=== PATIENT | female | born 1975 | race African-American/Black ===

== ENCOUNTER 2016-11-19 20:36 | Inpatient (IN) | payer MEDICAID, OTHER ==
[~2016-11-19] VITALS: Ht 162.6 cm; Wt 81.5 kg
[~2016-11-19 20:36] MED LIST: IBUP-232 PO
[2016-11-19 20:41] VITALS: BP 180/106; PULSE 75; RESP 16; TEMP 98.6; O2SAT 100
[2016-11-20] VITALS (9 sets, daily range): BP systolic 137–223; BP diastolic 11–131; PULSE 66–89; RESP 16–19; TEMP 98.2; O2SAT 98–100
--- NOTE | 2016-11-20 04:21 | PD ---
HPI Chief Complaint: Anxiety Time Seen by Provider: 03:04 Travel History International Travel<30 days: No Contact w/Intl Traveler<30days: No Traveled to known affect area: No History of Present Illness HPI The patient is 41 year old female who presents to the [facility] emergency department with a history of depression and anxiety, who reports that her psychologist recommended that she be admitted to the hospital for medication adjustments that she has been experiencing suicidal ideations. She reports that she was seen by her psychologist at 6 PM today. The patient reports that she does also have a history of high blood pressure she reports that her blood pressure has been higher than usual since yesterday, however she has been treating this distress. She reports that she has a history of taking clonidine when necessary of her blood pressure spikes. She reports that she took it twice yesterday. She also has been taking her baseline medication of lisinopril and her psychiatric medications. The patient reports having suicidal ideations without a plan. She reports however that she has attempted suicide in the past by overdosing on pills. The patient had a prolonged wait on triage to be seen in the patient's blood pressure did go up to as high as 223 /131 prior to arrival back in the room. The patient began to have a headache and photophobia. The patient denies having any facial droop, difficulty with word finding ability, amaurosis fugax, one-sided weakness, or paresthesias. The patient denies any recent fevers, cough, congestion, neck pain, chest pain, shortness of breath, abdominal pain, vomiting, diarrhea, urinary symptoms, or other neurologic symptoms. PFSH Past Medical History Narrative Medical The patient's past medical history is significant for hypertension, history of anxiety and depression, history of hidradenitis upper teeth, history of anticardiolipin antibody syndrome. Hx Anticoagulant Therapy: Yes (ASA) Arthritis: No Asthma: No Autoimmune Disease: Yes (ANTICARDOLIPID ) Anxiety: Yes Depression: No Heart Rhythm Problems: No Cardiac Catheterization: No Cardiovascular Problems: Yes (HTN) High Cholesterol: No Chemotherapy: No Chest Pain: No Congestive Heart Failure: No COPD: No Cerebrovascular Accident: No Diabetes: Yes Patient Takes Glucophage: Yes Diminished Hearing: No Endocrine: No Gastrointestinal Disorders: Yes (ACID REFLUX) GERD: Yes Glaucoma: No Genitourinary: No Headaches: No Hepatitis: No Hiatal Hernia: No Hypertension: Yes Immune Disorder: No Kidney Stones: No Musculoskeletal: Yes (BACK AND NECK PAIN) Neurologic: Yes Psychiatric: Yes (ANXIETY & DEPRESSION) Respiratory: Yes (BRONCHITIS,SLEEP APNEA) Migraines: Yes Myocardial Infarction: No Radiation Therapy: No Renal Failure: No Seizures: Yes Sickle Cell Disease: No Sleep Apnea: Yes (DOES NOT WEAR CPAP) Thyroid Disease: No Ulcer: No Tetanus Vaccination: > 5 Years Influenza Vaccination: No ?: Not LMP: LAST WEEK Menopausal: Yes : 0 Para: 0 Miscarriage: 0 : 0 Ovarian Cysts: Yes Past Surgical History Narrative Surgical The patient's past surgical history is significant for cyst resection, root canal, emergency surgery regarding airway impingement after root canal Abdominal Surgery: No AICD: No Body Medical Devices: NONE Cardiac Surgery: No Coronary Artery Bypass Graft: No Ear Surgery: No Endocrine Surgery: No Eye Surgery: No Genitourinary Surgery: No Gynecologic Surgery: Yes (CYSTS IN "PELVIS"" PER PATIENT) Joint Replacement: No Oral Surgery: Yes Pacemaker: No Other Surgery: Yes Family History Family Myocardial Infarction: Yes (MATERNAL GRANDFATHER) Family Hypercholesterolemia: Yes Social History Alcohol Use: No Tobacco Use: No Substance Use: No Allergies-Medications (Allergen,Severity, Reaction): Coded Allergies: Hydromorphone (Verified Allergy, Severe, Itching, 11/19/16) Iodine (Verified Allergy, Severe, Hives, 11/19/16) NOT ALLERGIC TO BETADINE Ondansetron (Verified Allergy, Severe, Itching, 11/19/16) Tetracycline (Verified Allergy, Severe, Hives, 11/19/16) Reported Meds & Prescriptions Reported Meds & Active Scripts Active Ibuprofen 600 Mg Tab 600 Mg PO Q8HR PRN 5 Days Review of Systems Except as stated in HPI: all other systems reviewed are Neg General / Constitutional: No: Fever Eyes: Positive: Photophobia, No: Visual changes HENT: Positive: Headaches, No: Neck Stiffness, Neck Pain Cardiovascular: No: Chest Pain or Discomfort Respiratory: No: Shortness of Breath Gastrointestinal: No: Abdominal Pain Genitourinary: No: Dysuria Musculoskeletal: No: Pain Skin: No Rash Neurologic: No: Weakness Psychiatric: Positive: Depression, Suicidal Ideations, Mood Disorder, No: Disorder of Thought, Substance Abuse, Homicidal Ideation Endocrine: No: Polydipsia Hematologic/Lymphatic: No: Easy Bruising Physical Exam Narrative General: The patient is a well-developed well-nourished female in no acute distress. Head and Neck exam: Head is normocephalic atraumatic. Eyes: EOMI, pupils are equal round and reactive to light. The patient is sensitive to light on initial evaluation. Nose: Midline septum with pink mucous membranes Mouth: Dentition unremarkable. Moist mucus membranes. Posterior oropharynx is not erythematous. No tonsillar hypertrophy. Uvula midline. Airway patent. Neck: No palpable lymphadenopathy. No nuchal rigidity. No thyromegaly. Cardiovascular: Regular rate and rhythm without murmurs, gallops, or rubs. No pulse deficit to the extremities and simultaneous auscultation and palpation of her radial artery. Lungs: Clear to auscultation bilaterally. No wheezes, rhonchi, or rales. Abdomen: Soft, without tenderness to palpation in all 4 quadrants of the abdomen. No guarding, rebound, or rigidity. Normal bowel sounds are audible Extremities: No clubbing, cyanosis, or edema. 2+ pulses in all 4 extremities. No calf tenderness on palpation. Back: No spinous process tenderness to palpation. No costovertebral angle tenderness to palpation. Neurologic Exam: Cranial nerves 2-12 were intact on exam. Strength is 5/5 in all 4 extremities. No sensory deficits noted. Skin Exam: No rash noted. Intact skin that is warm and dry. Data Data Last Documented VS Vital Signs Date Time Temp Pulse Resp B/P Pulse Ox O2 Delivery O2 Flow Rate FiO2 11/20/16 06:50 85 16 142/86 98 Room Air 11/19/16 20:41 98.6 Orders Complete Blood Count With Diff (11/20/16 03:05) Comprehensive Metabolic Panel (11/20/16 03:05) Urinalysis - C+S If Indicated (11/20/16 03:05) Drug Screen, Random Urine (11/20/16 03:05) Ed Urine Pregnancytest Poc (11/20/16 03:05) Electrocardiogram (11/20/16 03:05) Oximetry (11/20/16 03:05) Iv Access Insert/Monitor (11/20/16 03:05) Ecg Monitoring (11/20/16 03:05) Alcohol (Ethanol) (11/20/16 03:05) Psych Screen (11/20/16 03:05) Ct Brain W/O Iv Contrast(Rout) (11/20/16 ) Labs Laboratory Tests Test 11/20/16 11/20/16 04:10 04:30 White Blood Count 6.1 TH/MM3 Red Blood Count 4.26 MIL/MM3 Hemoglobin 10.3 GM/DL Hematocrit 32.1 % Mean Corpuscular Volume 75.3 FL Mean Corpuscular Hemoglobin 24.2 PG Mean Corpuscular Hemoglobin 32.1 % Concent Red Cell Distribution Width 17.3 % Platelet Count 330 TH/MM3 Mean Platelet Volume 8.8 FL Neutrophils (%) (Auto) 42.4 % Lymphocytes (%) (Auto) 47.3 % Monocytes (%) (Auto) 4.8 % Eosinophils (%) (Auto) 4.2 % Basophils (%) (Auto) 1.3 % Neutrophils # (Auto) 2.6 TH/MM3 Lymphocytes # (Auto) 2.9 TH/MM3 Monocytes # (Auto) 0.3 TH/MM3 Eosinophils # (Auto) 0.3 TH/MM3 Basophils # (Auto) 0.1 TH/MM3 CBC Comment AUTO DIFF Differential Comment AUTO DIFF CONFIRMED Platelet Estimate NORMAL Platelet Morphology Comment NORMAL Red Cell Morphology Comment NORMAL Sodium Level 139 MEQ/L Potassium Level 3.9 MEQ/L Chloride Level 106 MEQ/L Carbon Dioxide Level 25.7 MEQ/L Anion Gap 7 MEQ/L Blood Urea Nitrogen 10 MG/DL Creatinine 0.82 MG/DL Estimat Glomerular Filtration 93 ML/MIN Rate Random Glucose 101 MG/DL Calcium Level 8.7 MG/DL Total Bilirubin 0.2 MG/DL Aspartate Amino Transf 17 U/L (AST/SGOT) Alanine Aminotransferase 23 U/L (ALT/SGPT) Alkaline Phosphatase 53 U/L Total Protein 7.8 GM/DL Albumin 3.6 GM/DL Ethyl Alcohol Level LESS THAN 3 MG/DL Urine Color YELLOW Urine Turbidity CLEAR Urine pH 6.0 Urine Specific [place] 1.024 Urine Protein TRACE mg/dL Urine Glucose (UA) NEG mg/dL Urine Ketones NEG mg/dL Urine Occult Blood SMALL Urine Nitrite NEG Urine Bilirubin NEG Urine Urobilinogen LESS THAN 2.0 MG/DL Urine Leukocyte Esterase NEG Urine RBC LESS THAN 1 /hpf Urine WBC 1 /hpf Urine Squamous Epithelial 2 /hpf Cells Urine Mucus FEW /lpf Microscopic Urinalysis Comment CULT NOT INDICATED Urine Opiates Screen NEG Urine Barbiturates Screen NEG Urine Amphetamines Screen POS Urine Benzodiazepines Screen NEG Urine Cocaine Screen NEG Urine Cannabinoids Screen NEG MDM Medical Decision Making Medical Screen Exam Complete: Yes Emergency Medical Condition: Yes Medical Record Reviewed: Yes Differential Diagnosis Intracranial hemorrhage, versus hypertension induced headache, versus tension headache, versus migraine headache, versus substance induced mood disorder, versus exacerbation of depression with suicidal ideations Narrative Course During the course of the patients emergency department visit, the patients history, examination, and differential diagnosis were reviewed with the patient. The patient had IV access obtained and blood work sent for analysis. The patient was placed on a alarm security or surveillance monitor with oximetry and blood pressure monitoring. The patient's blood pressure on repeat evaluation once back in the ER room was 143/83. A CT scan of the brain was ordered. A psychiatric screen was ordered regarding the patient's suicidal ideations. The patients laboratory studies were reviewed and remarkable for a CBC that shows a white count of 6.1, hemoglobin 10.3, platelets 3:30 with 47.3 lymphocytes, CMP is unremarkable, urinalysis unremarkable, urine drug screen positive for amphetamines, alcohol level less than 3. Radiology studies were reviewed and remarkable for a CT scan of the brain that showed no acute abnormality. The patient reported feeling improved after her blood pressure began to improve. The patient has been medically cleared for evaluation by the psychiatric screener. Diagnosis Primary Impression: Poorly-controlled hypertension Additional Impressions: Depression Qualified Code: F32.9 - Depression, unspecified depression type Headache Qualified Code: R51 - Acute nonintractable headache, unspecified headache type Suicidal ideation June Beltran MD Nov 20, 2016 04:21
[2016-11-20 04:32] LABS: AUTOMATED NEUTROPHIL # 2.6 TH/MM3 (1.8-7.7); BASOPHIL # 0.1 TH/MM3 (0-0.2); BASOPHIL % 1.3 % (0.0-2.0); EOSINOPHIL # 0.3 TH/MM3 (0-0.4); EOSINOPHIL % 4.2 % (0.0-4.0); HEMATOCRIT 32.1 % (35.0-46.0); HEMO FLAGS AUTO DIFF; LYMPH % 47.3 % (9.0-44.0); LYMPHOCYTE # 2.9 TH/MM3 (1.0-4.8); MEAN CELL VOLUME 75.3 FL (80.0-100.0); MEAN CORPUSCULAR HEMOGLOBIN 24.2 PG (27.0-34.0); MEAN CORPUSCULAR HGB CONC 32.1 % (32.0-36.0); MONO % 4.8 % (0.0-8.0); NEUT % 42.4 % (16.0-70.0); PLATELET COUNT 330 TH/MM3 (150-450); RED BLOOD COUNT 4.26 MIL/MM3 (4.00-5.30); RED CELL DISTRIBUTION WIDTH 17.3 % (11.6-17.2); WHITE BLOOD COUNT 6.1 TH/MM3 (4.0-11.0)
[2016-11-20 04:48] LABS: ALKALINE PHOSPHATASE 53 U/L (45-117); TOTAL BILIRUBIN ADULT 0.2 MG/DL (0.2-1.0)
[2016-11-20 04:49] LABS: ALT (GPT) 23 U/L (10-53); ANION GAP 7 MEQ/L (5-15); AST (GOT) 17 U/L (15-37); BICARBONATE 25.7 MEQ/L (21.0-32.0); BLOOD UREA NITROGEN 10 MG/DL (7-18); CHLORIDE 106 MEQ/L (98-107); GLOMERULAR FILTRATION RATE 93 ML/MIN (>89); POTASSIUM 3.9 MEQ/L (3.5-5.1); SODIUM (NA) 139 MEQ/L (136-145)
[2016-11-20 04:59] LABS: AMPHETAMINE, URINE POS (NEG); BARBITURATES, URINE NEG (NEG); COCAINE, URINE NEG (NEG)
[2016-11-20 05:07] LABS: BLOOD, URINE SMALL (NEG); COMMENT (UR) CULT NOT INDICATED; CULTURE IF INDICATED CULT NOT INDICATED; GLUCOSE,URINE NEG (NEG); KETONE, URINE NEG (NEG); MUCUS URINE FEW /lpf (OCC); NITRITE,URINE NEG (NEG); SQUAMOUS EPITHELIAL CELL URINE 2 /hpf (0-5); URINE COLOR YELLOW (YELLW/STRAW)
[2016-11-20 05:16] LABS: PLATELET ESTIMATE SMEAR NORMAL (NORMAL); PLATELET MORPHOLOGY NORMAL (NORMAL); SCAN/DIFF AUTO DIFF CONFIRMED
--- NOTE | 2016-11-20 05:27 | RADRPT ---
EXAM DATE/TIME: 11/20/2016 03:29 [place] COMPARISON: CT BRAIN W/O CONTRAST, August 17, 2016, 12:07. INDICATIONS : Cephalgia starting today. RADIATION DOSE: 43.44 CTDIvol (mGy) MEDICAL HISTORY : Cardiovascular disease. Seizures. Hypertension.Diabetes SURGICAL HISTORY : None. ENCOUNTER: Initial ACUITY: 1 day PAIN SCALE: 6/10 LOCATION: cranial TECHNIQUE: Multiple contiguous axial images were obtained of the head. Using automated exposure control and adj ustment of the mA and/or kV according to patient size, radiation dose was kept as low as reasonably a chievable to obtain optimal diagnostic quality images. FINDINGS: CEREBRUM: The ventricles are normal for age. No evidence of midline shift, mass lesion, hemorrhage or acute in farction. No extra-axial fluid collections are seen. POSTERIOR FOSSA: The cerebellum and brainstem are intact. The 4th ventricle is midline. The cerebellopontine angle i s unremarkable. EXTRACRANIAL: The visualized portion of the orbits is intact. SKULL: The calvaria is intact. No evidence of skull fracture. CONCLUSION: Normal examination. Tor Corcoran Jr., MD on November 20, 2016 at 5:24 Board Certified Radiologist. This report was verified electronically.
[2016-11-20] MEDS ORDERED: PLAQ200T PO (13:15)
[2016-11-20] MEDS ORDERED: LISI-515 PO (13:15)
[2016-11-20] MEDS ORDERED: HUMI40KI SQ (13:15)
[2016-11-20] MEDS ORDERED: DOXA4TAB3 PO (13:15)
[2016-11-20] MEDS ORDERED: METF500T PO (13:15)
[2016-11-20] MEDS ORDERED: LORA-373 PO (18:05)
[2016-11-20] MEDS ORDERED: VYVA50CA3 PO (18:05)
[2016-11-20] MEDS ORDERED: WELL200T PO (18:05)
[2016-11-20] MEDS ORDERED: LORazepam 0.5 MG TAB PO ONE (18:30)
[2016-11-20] MEDS ORDERED: LISINOPRIL 20 MG TAB PO ONE (19:00)
[2016-11-20] MEDS ORDERED: LORazepam 2 MG/ML VIAL IM PRN (20:15)
[2016-11-20] MEDS ORDERED: ALUMINUM/MAGNESIUM/SIMETH 30 ML CUP PO PRN (20:15)
[2016-11-20] MEDS ORDERED: MAGNESIUM HYDROXIDE SUSP 30 ML CUP PO PRN (20:15)
[2016-11-20] MEDS ORDERED: ENALAPRILAT 2.5 MG/2 ML VIAL IV PUSH PRN (21:15)
[2016-11-20] MEDS ORDERED: diphenhydrAMINE HCL 50 MG/ML VIAL IM ONE (22:45)
--- NOTE | 2016-11-20 23:43 | EKG ---
Date Performed: 11/20/2016 Time Performed: 03:43:08 PTAGE: 41 years EKG: Sinus rhythm NONSPECIFIC T-WAVE ABNORMALITY BORDERLINE ECG PREVIOUS TRACING : 08/17/2016 12.26 DOCTOR: Willian Garcia Interpretating Date/Time 11/20/2016 23:40:36
[2016-11-21 05:57] VITALS: BP 141/87; PULSE 72; RESP 16; TEMP 98; O2SAT 100
[2016-11-21 07:29] LABS: RETIC % 1.6 % (0.4-3.0)
[2016-11-21 07:30] LABS: AUTOMATED NEUTROPHIL # 2.2 TH/MM3 (1.8-7.7); BASOPHIL % 0.7 % (0.0-2.0); EOSINOPHIL # 0.2 TH/MM3 (0-0.4); EOSINOPHIL % 4.1 % (0.0-4.0); HEMATOCRIT 31.9 % (35.0-46.0); LYMPH % 45.6 % (9.0-44.0); LYMPHOCYTE # 2.3 TH/MM3 (1.0-4.8); MEAN CELL VOLUME 74.7 FL (80.0-100.0); MEAN CORPUSCULAR HGB CONC 32.2 % (32.0-36.0); MONO % 5.4 % (0.0-8.0); NEUT % 44.2 % (16.0-70.0); PLATELET COUNT 310 TH/MM3 (150-450); RED BLOOD COUNT 4.27 MIL/MM3 (4.00-5.30); RED CELL DISTRIBUTION WIDTH 16.7 % (11.6-17.2); WHITE BLOOD COUNT 5.1 TH/MM3 (4.0-11.0)
[2016-11-21 07:34] LABS: REVIEW FLAG FINAL
[2016-11-21 07:35] LABS: HEMO FLAGS AUTO DIFF
[2016-11-21 07:56] LABS: ANION GAP 8 MEQ/L (5-15); BICARBONATE 26.9 MEQ/L (21.0-32.0); BLOOD UREA NITROGEN 9 MG/DL (7-18); CHLORIDE 104 MEQ/L (98-107); GLOMERULAR FILTRATION RATE 94 ML/MIN (>89); MAGNESIUM 1.8 MG/DL (1.5-2.5); POTASSIUM 3.6 MEQ/L (3.5-5.1); SODIUM (NA) 139 MEQ/L (136-145); THYROXINE (T4) 6.3 MCG/DL (4.8-13.9)
[2016-11-21 08:06] LABS: FERRITIN 10 NG/ML (8-252); HDL CHOLESTEROL 62.6 MG/DL (40.0-60.0); LDL CHOLESTEROL 104 MG/DL (0-99); TRANSFERRIN IRON PROFILE 300 MG/DL (200-360)
[2016-11-21] MEDS: LISINOPRIL 20 MG TAB PO SCH ×2 (08:59→22:08)
[2016-11-21] MEDS: DOXAZOSIN MESYLATE 4 MG TAB PO SCH ×2 (08:59→22:08)
[2016-11-21] MEDS: metFORMIN HCL 500 MG TAB PO SCH (09:00)
[2016-11-21] MEDS ORDERED: GLUCAGON 1 MG/ML VIAL OTHER PRN (09:00)
[2016-11-21] MEDS ORDERED: DEXTROSE 50% IN WATER 50 ML VIAL(D50) IV PUSH PRN (09:00)
[2016-11-21] MEDS: LORazepam 1 MG TAB PO PRN (09:02)
[2016-11-21 09:10] LABS: SCAN/DIFF AUTO DIFF CONFIRMED
[2016-11-21] MEDS ORDERED: MAGNESIUM OXIDE 400 MG TAB PO ONE (09:30)
[2016-11-21] MEDS ORDERED: POTASSIUM CHLORIDE 20 MEQ CONTROLLED RELEASE TAB PO ONE (09:30)
[2016-11-21] MEDS: FERROUS SULFATE 325 MG (65 MG ELEMENTAL IRON) TAB PO SCH (10:24)
[2016-11-21] MEDS: INSULIN ASPART SUPPLEMENTAL SCALE SQ SCH ×3 (11:00→20:00)
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
--- NOTE | 2016-11-21 14:04 | PD.CONS ---
HPI [facility] Consult Requested By Psychiatry team Reason for Consult Medical management of HTN Primary Care Physician Timothy Gallo MD Diagnoses: History of Present Illness Patient is a 41 year old female who came into the hospital as per her psychologist recommendation secondary to suicidal ideations. She is now admitted to inpatient psychiatric unit for further evaluation. Consulted for medical management of hypertension and other medical conditions. Patient seen today. States she has multiple medical problems including HTN, DM , joint pain being followed by compliance review specialist -Dr. Hickman. She also states that she is taking Humira at home once a week injection. Patient has agreed to restart all her medications. Denies pain and discomfort. Denies SOB/ dyspnea. Denies chest pain, palpitations, headaches, dizziness. Denies fevers, chills, n/ v/d. Review of Systems Constitutional: DENIES: Fever, Chills, Change in appetite Endocrine: DENIES: Heat/cold intolerance Eyes: DENIES: Blurred vision, Eye pain Respiratory: DENIES: Cough, Wheezing, Sputum production, Shortness of breath Cardiovascular: DENIES: Chest pain, Palpitations, Lower Extremity Edema Gastrointestinal: DENIES: Black stools, Bloody stools, Constipation, Diarrhea, Nausea Musculoskeletal: COMPLAINS OF: Joint pain Neurologic: DENIES: Abnormal gait Psychiatric: COMPLAINS OF: Depression Past Family Social History Allergies: Coded Allergies: Hydromorphone (Verified Allergy, Severe, Itching, 11/19/16) Iodine (Verified Allergy, Severe, Hives, 11/19/16) NOT ALLERGIC TO BETADINE Ondansetron (Verified Allergy, Severe, Itching, 11/19/16) Tetracycline (Verified Allergy, Severe, Hives, 11/19/16) Past Medical History Depression Anxiety HTN DM GERD Back and neck pain Sleep apnea Past Surgical History Cyst resection in the pelvis Oral surgery Root canal Reported Medications Ibuprofen 600 Mg Tab 600 Mg PO Q8HR PRN 5 Days Plaquenil (Hydroxychloroquine Sulfate) 200 Mg Tab 200 Mg PO BID Ferrous Sulfate 325 Mg Tab 325 Mg PO DAILY Wellbutrin Sr (Bupropion HCl) 200 Mg Tab 200 Mg PO DAILY Vitamin D / Drisdol 50,000 Units (Ergocalciferol) 50,000 Units Cap 1 Cap PO Q7D Lisinopril 20 mg (Lisinopril) 20 Mg Tab 1 Tab PO DAILY Ativan (Lorazepam) 0.5 Mg Tab 0.5 Mg PO Q4 PRN For mild anxiety / dyspnea Prozac (Fluoxetine HCl) 10 Mg Cap 60 Mg PO DAILY Prilosec Otc (Omeprazole Magnesium) 20 Mg Tab 20 Mg PO DAILY Metformin (Metformin HCl) 500 Mg Tab 500 Mg PO DAILY Humira injection 40 mg once a week Active Ordered Medications Current Medications Medications (Trade) Dose Ordered Sig/Raoul Route Start Time Stop Time Status Last Admin (Ativan) 1 mg Q6H PRN PO 11/20/16 20:15 11/21/16 09:02 (Ativan Inj) 1 mg Q6H PRN IM 11/20/16 20:15 (Tylenol) 650 mg Q4H PRN PO 11/20/16 20:15 (Milk Of Magnesia Liq) 30 ml DAILY PRN PO 11/20/16 20:15 (Mag-Al Plus Susp Liq) 30 ml Q6H PRN PO 11/20/16 20:15 (Vasotec Inj) 2.5 mg Q6H PRN IV PUSH 11/20/16 21:15 (Cardura) 4 mg BID PO 11/21/16 09:00 11/21/16 08:59 (Prinivil) 20 mg BID PO 11/21/16 09:00 11/21/16 08:59 (Glucophage) 500 mg DAILY PO 11/21/16 09:00 11/21/16 09:00 (D50w (Vial) Inj) 25 ml UNSCH PRN IV PUSH 11/21/16 09:00 (Glucagon Inj) 1 mg UNSCH PRN OTHER 11/21/16 09:00 (Ferrous Sulfate) 325 mg DAILY PO 11/21/16 09:00 11/21/16 10:24 (Wellbutrin Sr) 150 mg BID PO 11/21/16 13:45 UNV (Vyvanse) 30 mg DAILY PO 11/22/16 09:00 UNV (Abilify) 10 mg HS PO 11/21/16 21:00 UNV Family History Myocardial infarction maternal grandfather Family history of hypercholesteremia Social History Denies alcohol use Denies tobacco use Denies illicit drug use Physical Exam Vital Signs Vital Signs Date Time Temp Pulse Resp B/P Pulse Ox O2 Delivery O2 Flow Rate FiO2 11/21/16 05:57 98.0 72 16 141/87 100 11/20/16 21:52 98.2 66 18 158/97 100 11/20/16 20:58 68 19 165/95 98 Room Air 11/20/16 18:48 78 18 178/104 98 Room Air 11/20/16 14:36 75 16 174/96 100 Physical Exam GENERAL: This is a well-nourished, well-developed patient, in no apparent distress. SKIN: No rashes, ecchymoses or lesions. Cool and dry. HEAD: Atraumatic. Normocephalic. EYES: Pupils equal round and reactive. No scleral icterus. No injection or drainage. ENT: Nose without bleeding. Airway patent. NECK: Trachea midline. No JVD or lymphadenopathy. CARDIOVASCULAR: Regular rate and rhythm without murmurs, gallops, or rubs. RESPIRATORY: Clear to auscultation. Breath sounds equal bilaterally. No wheezes , rales, or rhonchi. GASTROINTESTINAL: Abdomen soft, non-tender, nondistended. Bowel sounds active 4 MUSCULOSKELETAL: Extremities without clubbing, cyanosis, or edema. NEUROLOGICAL: Awake and alert. Motor and sensory grossly within normal limits. No focal neuro deficit. Normal speech. Laboratory Laboratory Tests Test 11/21/16 07:05 White Blood Count 5.1 Red Blood Count 4.27 Hemoglobin 10.3 Hematocrit 31.9 Mean Corpuscular Volume 74.7 Mean Corpuscular Hemoglobin 24.0 Mean Corpuscular Hemoglobin 32.2 Concent Red Cell Distribution Width 16.7 Platelet Count 310 Mean Platelet Volume 8.1 Neutrophils (%) (Auto) 44.2 Lymphocytes (%) (Auto) 45.6 Monocytes (%) (Auto) 5.4 Eosinophils (%) (Auto) 4.1 Basophils (%) (Auto) 0.7 Neutrophils # (Auto) 2.2 Lymphocytes # (Auto) 2.3 Monocytes # (Auto) 0.3 Eosinophils # (Auto) 0.2 Basophils # (Auto) 0.0 CBC Comment AUTO DIFF Differential Comment AUTO DIFF CONFIRMED Reticulocyte Count 1.6 Absolute Reticulocyte Count 69.7 Sodium Level 139 Potassium Level 3.6 Chloride Level 104 Carbon Dioxide Level 26.9 Anion Gap 8 Blood Urea Nitrogen 9 Creatinine 0.81 Estimat Glomerular Filtration 94 Rate Random Glucose 90 Calcium Level 8.7 Magnesium Level 1.8 Iron Level 25 Total Iron Binding Capacity 420 Percent Iron Saturation 6.0 Ferritin 10 Triglycerides Level 103 Cholesterol Level 187 LDL Cholesterol 104 HDL Cholesterol 62.6 Cholesterol/HDL Ratio 2.98 Thyroxine (T4) 6.3 Thyroid Stimulating Hormone 1.240 3rd Gen Result Diagram: 11/21/1670411/21/16704 Assessment and Plan Problem List: (1) Anxiety ICD Code: F41.9 Status: Acute (2) Sleep apnea ICD Code: G47.30 Status: Chronic (3) Chronic neck pain ICD Code: G89.29 Status: Chronic (4) Chronic back pain ICD Code: G89.29 Status: Chronic (5) GERD (gastroesophageal reflux disease) ICD Code: K21.9 Status: Chronic (6) DM (diabetes mellitus) ICD Code: E11.9 Status: Chronic (7) Hypertension ICD Code: I10 Status: Chronic (8) major depressive disorder chronic recurrent moderate Status: Acute (9) Suicidal ideation ICD Code: R45.851 Status: Acute Assessment and Plan Patient is a 41 year old female who came into the hospital as per her psychologist recommendation secondary to suicidal ideations. Major depression, suicidal ideation - managed by psychiatry team HTN - lisinopril 20 mg by mouth twice a day - Cardura 4 mg by mouth twice a day - Vasotec when necessary - Monitor BP trend HLD - start Lipitor 20 mg. discussed extensively use of statin with patient considering her comorbid condition which includes hypertension, DM patient does agree to take Lipitor. DM 2 - continue metformin 500 mg daily, insulin sliding scale. Monitor Accu- Cheks -Hemoglobin A1c 5.5 Anemia - continue with iron supplement daily Joint pain, HSN - Continue ibuprofen, Plaquenil, Humira DVT prop early ambulation Thank you for this consultation. Stable from Hospitalist standpoint. We will sign off. Reconsult as needed. Written by Marcos Izaguirre, acting as scribe for Dr. Armendariz on 11/21/16 at 16:07. The documentation accurately reflects the work performed [id number] by me on at 16:07. Code Status Full code Discussed Condition With Patient, nursing Marcos Smith Nov 21, 2016 14:04 Gorge Armendariz DO Nov 21, 2016 22:26
[2016-11-21 16:14] LABS: HEMOGLOBIN A1b 1.5 %; HEMOGLOBIN Ao 86.1 %; HEMOGLOBIN LA1C 1.7 %; HEMOGLOBIN P3 3.5 %
[2016-11-21] MEDS ORDERED: ADALIMUMAB 40 MG SQ SCH (17:00)
--- NOTE | 2016-11-21 18:21 | PD.CONS ---
History of Present Illness Service [facility] Consult Requested By Reason for Consult MANAGEMENT OF MEDICAL PROBLEMS Primary Care Physician TIMOTHY GALLO MD Diagnoses: History of Present Illness This patient is a 41 year old female who has had longstanding emotional and psychiatric problems. She was seen earlier on the day of admission by her psychologist. The psychologist recommended that she present to the [facility] for admission due to a presentation of decompensation. She Review of Systems Constitutional: COMPLAINS OF: Fatigue, Weight gain Genitourinary: COMPLAINS OF: Urinary frequency Neurologic: COMPLAINS OF: Headache Psychiatric: COMPLAINS OF: Anxiety, Mood changes, Depression, Agitation Past Family Social History Allergies: Coded Allergies: Hydromorphone (Verified Allergy, Severe, Itching, 11/19/16) Iodine (Verified Allergy, Severe, Hives, 11/19/16) NOT ALLERGIC TO BETADINE Ondansetron (Verified Allergy, Severe, Itching, 11/19/16) Tetracycline (Verified Allergy, Severe, Hives, 11/19/16) Past Medical History 1. Diabetes Mellitus, Type 2. 2. Post Traumatic Stress Disorder. 3. Hypertension. 4. Hyperlipidemia. 5. Anxiety Disorder. 6. Depression. 7. Migraine Headache. 8. Gastroesophageal Reflux Disease. 9. Chronic Anemia. Past Surgical History Previous foot surgery. Physical Exam Vital Signs Vital Signs Date Time Temp Pulse Resp B/P Pulse Ox O2 Delivery O2 Flow Rate FiO2 11/21/16 05:57 98.0 72 16 141/87 100 11/20/16 21:52 98.2 66 18 158/97 100 11/20/16 20:58 68 19 165/95 98 Room Air 11/20/16 18:48 78 18 178/104 98 Room Air Physical Exam GENERAL: This is a well-nourished, well-developed patient, in no apparent distress. SKIN: No rashes, ecchymoses or lesions. Cool and dry. HEAD: Atraumatic. Normocephalic. No temporal or scalp tenderness. EYES: Pupils equal round and reactive. Extraocular motions intact. No scleral icterus. No injection or drainage. ENT: Nose without bleeding, purulent drainage or septal hematoma. Throat without erythema, tonsillar hypertrophy or exudate. Uvula midline. Airway patent. NECK: Trachea midline. No JVD or lymphadenopathy. Supple, nontender, no meningeal signs. CARDIOVASCULAR: Regular rate and rhythm without murmurs, gallops, or rubs. RESPIRATORY: Clear to auscultation. Breath sounds equal bilaterally. No wheezes , rales, or rhonchi. GASTROINTESTINAL: Abdomen soft, non-tender, nondistended. No hepato-splenomegaly , or palpable masses. No guarding. MUSCULOSKELETAL: Extremities without clubbing, cyanosis, or edema. No joint tenderness, effusion, or edema noted. No calf tenderness. Negative Homans sign bilaterally. NEUROLOGICAL: Awake and alert. Cranial nerves II through XII intact. Motor and sensory grossly within normal limits. Five out of 5 muscle strength in all muscle groups. Normal speech. Laboratory Laboratory Tests Test 11/21/16 07:05 White Blood Count 5.1 Red Blood Count 4.27 Hemoglobin 10.3 Hematocrit 31.9 Mean Corpuscular Volume 74.7 Mean Corpuscular Hemoglobin 24.0 Mean Corpuscular Hemoglobin 32.2 Concent Red Cell Distribution Width 16.7 Platelet Count 310 Mean Platelet Volume 8.1 Neutrophils (%) (Auto) 44.2 Lymphocytes (%) (Auto) 45.6 Monocytes (%) (Auto) 5.4 Eosinophils (%) (Auto) 4.1 Basophils (%) (Auto) 0.7 Neutrophils # (Auto) 2.2 Lymphocytes # (Auto) 2.3 Monocytes # (Auto) 0.3 Eosinophils # (Auto) 0.2 Basophils # (Auto) 0.0 CBC Comment AUTO DIFF Differential Comment AUTO DIFF CONFIRMED Reticulocyte Count 1.6 Absolute Reticulocyte Count 69.7 Sodium Level 139 Potassium Level 3.6 Chloride Level 104 Carbon Dioxide Level 26.9 Anion Gap 8 Blood Urea Nitrogen 9 Creatinine 0.81 Estimat Glomerular Filtration 94 Rate Random Glucose 90 Hemoglobin A1c 5.5 Calcium Level 8.7 Magnesium Level 1.8 Iron Level 25 Total Iron Binding Capacity 420 Percent Iron Saturation 6.0 Ferritin 10 Triglycerides Level 103 Cholesterol Level 187 LDL Cholesterol 104 HDL Cholesterol 62.6 Cholesterol/HDL Ratio 2.98 Thyroxine (T4) 6.3 Thyroid Stimulating Hormone 1.240 3rd Gen Result Diagram: 11/21/1670411/21/16704 Assessment and Plan Assessment and Plan ASSESSMENT 1. Decompensated Major Depression. 2. Post Traumatic Stress Disorder. 3. Uncontrolled Hypertension. 4. Diabetes Mellitus, Type 2. 5. Hyperlipidemia. PLAN 1. Continue her home medications, as needed. 2. Monitor blood pressure and blood sugar status. 3. Follow up laboratory assessment. 4. Other as per Psychiatry Attending. 5. DVT and PE prophylaxis. Timothy Gallo MD Nov 21, 2016 18:21
[2016-11-21 18:52] VITALS: BP 164/98; PULSE 79; RESP 17; TEMP 99; O2SAT 100
[2016-11-21 20:30] VITALS: BP 159/88; PULSE 74
[2016-11-21] MEDS: buPROPion HCL 150 MG SUSTAINED RELEASE TAB PO SCH ×2 (21:00→22:08)
[2016-11-21] MEDS: ARIPiprazole 10 MG TAB PO SCH (22:22)
[2016-11-22] MEDS: INSULIN ASPART SUPPLEMENTAL SCALE SQ SCH ×4 (06:07→21:00)
[2016-11-22] MEDS: LISINOPRIL 20 MG TAB PO SCH ×2 (08:53→20:32)
[2016-11-22] MEDS: buPROPion HCL 150 MG SUSTAINED RELEASE TAB PO SCH ×2 (08:53→20:32)
[2016-11-22] MEDS: metFORMIN HCL 500 MG TAB PO SCH (08:53)
[2016-11-22] MEDS: FERROUS SULFATE 325 MG (65 MG ELEMENTAL IRON) TAB PO SCH (08:53)
[2016-11-22] MEDS: PANTOPRAZOLE SOD 40 MG DELAYED RELEASE TAB PO SCH (08:55)
[2016-11-22] MEDS: DOXAZOSIN MESYLATE 4 MG TAB PO SCH ×2 (08:55→20:36)
--- NOTE | 2016-11-22 11:45 | HHI.PYPN ---
Subjective Remarks Patient was seen and discussed with the staff consultant. Patient complains of headache nausea difficulty swallowing not feeling good feeling depressed wanting to be left alone. She was encouraged to participate in all the therapeutic activity as much as she can. She claimed that Hospital does not have Vyvanse but she can bring her home medication and we will allow her to take that which helps her attention. No behavior or management problem reported. Patient denied any active auditory or visual hallucinations. But she does have periods of depression and thoughts of suicide crosses her mind. Continue with the same treatment Review of Systems Except as stated in HPI: all other systems reviewed are Neg Gastrointestinal: COMPLAINS OF: Nausea, Difficulty Swallowing Neurologic: COMPLAINS OF: Headache Psychiatric: COMPLAINS OF: Mood changes, Depression Objective Alert: Yes [place]: Person, Place, Situation Mood: Anxious, Depressed Affect: Labile, Restricted Memory Intact: Recent (mildly impaired) Hallucinations: Other (patient denies any active auditory or visual hallucinations) Delusions: No Delusion Type: Other (no delusion obvious at this time) Suicidal: Ideation (patient denies any suicidal ideation intentions or plan) Homicidal: Ideation (denies any homicidal ideation intentions or plan) Insight/Judgement Fair Vitals/IOs Vital Signs Date Time Temp Pulse Resp B/P Pulse Ox O2 Delivery O2 Flow Rate FiO2 11/21/16 20:30 74 159/88 11/21/16 18:52 99.0 17 100 11/20/16 20:58 Room Air Assessment & Plan Problem List: (1) major depressive disorder chronic recurrent moderate (2) Anxiety ICD Code: F41.9 (3) History of posttraumatic stress disorder (PTSD) ICD Code: Z86.59 (4) DM (diabetes mellitus) ICD Code: E11.9 Assessment & Plan Estimated LOS: days Justification for Cont. Inpt. Titrating and monitoring of the medication to help lift her depression Request HC Surrog/Guard Advoc?: No Dell Noel MD Nov 22, 2016 11:45
[2016-11-22] MEDS ORDERED: hydrOXYzine HCL 50 MG TAB PO PRN (15:15)
[2016-11-22 19:39] VITALS: BP 160/80; PULSE 73; RESP 18; TEMP 98.6; O2SAT 100
[2016-11-22] MEDS: ARIPiprazole 10 MG TAB PO SCH (20:32)
[2016-11-22] MEDS ORDERED: ADALIMUMAB 40 MG SQ SCH (21:00)
[2016-11-23 06:08] VITALS: BP 140/84; PULSE 76; RESP 17; TEMP 98; O2SAT 98
[2016-11-23] MEDS: INSULIN ASPART SUPPLEMENTAL SCALE SQ SCH ×4 (06:17→20:20)
[2016-11-23] MEDS: LISDEXAMFETAMINE 30 MG PO SCH (09:00)
[2016-11-23] MEDS: buPROPion HCL 150 MG SUSTAINED RELEASE TAB PO SCH ×2 (09:14→20:18)
[2016-11-23] MEDS: LISINOPRIL 20 MG TAB PO SCH ×2 (09:14→20:18)
[2016-11-23] MEDS: metFORMIN HCL 500 MG TAB PO SCH (09:14)
[2016-11-23] MEDS: FERROUS SULFATE 325 MG (65 MG ELEMENTAL IRON) TAB PO SCH (09:14)
[2016-11-23] MEDS: DOXAZOSIN MESYLATE 4 MG TAB PO SCH ×2 (09:15→20:18)
[2016-11-23] MEDS: PANTOPRAZOLE SOD 40 MG DELAYED RELEASE TAB PO SCH (09:15)
--- NOTE | 2016-11-23 11:49 | HHI.PYPN ---
Subjective Remarks Patient was seen and discussed with the staff rn. Patient claimed that she was somewhat upset for not being able to sleep. But otherwise no behavior or management problem reported. Denied any active suicidal ideation intentions or plan. She is compliant in taking medication. Advised to continue with the same treatment Review of Systems Except as stated in HPI: all other systems reviewed are Neg Psychiatric: COMPLAINS OF: Anxiety, Mood changes, Depression Objective Alert: Yes [place]: Person, Place, Situation Mood: Anxious, Depressed Affect: Labile, Restricted Memory Intact: Recent (mildly impaired) Hallucinations: Other (patient denies any active auditory or visual hallucinations) Delusions: No Delusion Type: Other (no delusion obvious at this time) Suicidal: Ideation (patient denies any suicidal ideation intentions or plan) Homicidal: Ideation (denies any homicidal ideation intentions or plan) Insight/Judgement Fair Vitals/IOs Vital Signs Date Time Temp Pulse Resp B/P Pulse Ox O2 Delivery O2 Flow Rate FiO2 11/23/16 06:08 98.0 76 17 140/84 98 11/20/16 20:58 Room Air Assessment & Plan Problem List: (1) major depressive disorder chronic recurrent moderate (2) Anxiety ICD Code: F41.9 (3) History of posttraumatic stress disorder (PTSD) ICD Code: Z86.59 (4) DM (diabetes mellitus) ICD Code: E11.9 Assessment & Plan Estimated LOS: days Justification for Cont. Inpt. Titrating and monitoring of the medication to stabilize patient's mood Request HC Surrog/Guard Advoc?: No Dell Noel MD Nov 23, 2016 11:49
[2016-11-23] MEDS: LORazepam 1 MG TAB PO PRN (18:15)
[2016-11-23 18:19] VITALS: BP 195/76; PULSE 90
[2016-11-23 18:56] VITALS: BP 153/106; PULSE 86; RESP 18; TEMP 97.4; O2SAT 100
[2016-11-23] MEDS: ARIPiprazole 10 MG TAB PO SCH (20:18)
[2016-11-23] MEDS: ATORVASTATIN 20 MG TAB PO SCH (20:18)
[2016-11-24 06:03] VITALS: BP 124/84; PULSE 80; RESP 16; TEMP 98
[2016-11-24] MEDS: INSULIN ASPART SUPPLEMENTAL SCALE SQ SCH ×4 (07:46→21:00)
[2016-11-24] MEDS: FERROUS SULFATE 325 MG (65 MG ELEMENTAL IRON) TAB PO SCH (08:55)
[2016-11-24] MEDS: metFORMIN HCL 500 MG TAB PO SCH (08:56)
[2016-11-24] MEDS: DOXAZOSIN MESYLATE 4 MG TAB PO SCH ×2 (08:56→21:10)
[2016-11-24] MEDS: buPROPion HCL 150 MG SUSTAINED RELEASE TAB PO SCH ×2 (08:56→21:11)
[2016-11-24] MEDS: PANTOPRAZOLE SOD 40 MG DELAYED RELEASE TAB PO SCH (08:57)
[2016-11-24] MEDS: LISINOPRIL 20 MG TAB PO SCH ×2 (08:57→21:11)
[2016-11-24] MEDS: amLODIPine BESYLATE 5 MG TAB PO SCH (08:57)
[2016-11-24] MEDS: LISDEXAMFETAMINE 30 MG PO SCH (08:58)
[2016-11-24 19:43] VITALS: BP 136/82; PULSE 88; RESP 16; TEMP 98.5; O2SAT 99
[2016-11-24] MEDS: ARIPiprazole 10 MG TAB PO SCH (21:10)
[2016-11-24] MEDS: ATORVASTATIN 20 MG TAB PO SCH (21:11)
--- NOTE | 2016-11-24 21:41 | HHI.PYPN ---
Subjective Remarks Pt seen and discussed with staff. She remains depressed and anxious. Insight into illness is poor. Passive SI is present. No HI. No medication side effects. Objective Alert: Yes [place]: Person, Place, Date, Situation Mood: Anxious, Depressed Affect: Restricted Memory Intact: Recent (mildly impaired) Hallucinations: Other (patient denies any active auditory or visual hallucinations) Delusions: No Delusion Type: Other (no delusion obvious at this time) Suicidal: Ideation (patient denies any suicidal ideation intentions or plan) Homicidal: Ideation (denies any homicidal ideation intentions or plan) Insight/Judgement poor Vitals/IOs Vital Signs Date Time Temp Pulse Resp B/P Pulse Ox O2 Delivery O2 Flow Rate FiO2 11/24/16 19:43 98.5 88 16 136/82 99 11/20/16 20:58 Room Air Assessment & Plan Problem List: (1) major depressive disorder chronic recurrent moderate (2) Anxiety ICD Code: F41.9 (3) History of posttraumatic stress disorder (PTSD) ICD Code: Z86.59 (4) DM (diabetes mellitus) ICD Code: E11.9 Assessment & Plan Continue current tx plan.Estimated LOS: days Justification for Cont. Inpt. Continue current tx plan. Discharge Planning risk of decompensation Request HC Surrog/Guard Advoc?: Shruthi Thomas MD Nov 24, 2016 21:41
[2016-11-24] MEDS: LORazepam 1 MG TAB PO PRN (23:09)
[2016-11-24] MEDS: ACETAMINOPHEN 325 MG TAB PO PRN (23:10)
[2016-11-25 06:04] VITALS: BP 125/81; PULSE 84; RESP 18; TEMP 97.9
[2016-11-25] MEDS: INSULIN ASPART SUPPLEMENTAL SCALE SQ SCH ×4 (06:35→20:14)
[2016-11-25] MEDS: amLODIPine BESYLATE 5 MG TAB PO SCH (09:00)
[2016-11-25] MEDS: PANTOPRAZOLE SOD 40 MG DELAYED RELEASE TAB PO SCH (09:00)
[2016-11-25] MEDS: metFORMIN HCL 500 MG TAB PO SCH (09:00)
[2016-11-25] MEDS: LISINOPRIL 20 MG TAB PO SCH ×2 (09:00→20:43)
[2016-11-25] MEDS: LISDEXAMFETAMINE 30 MG PO SCH (09:00)
[2016-11-25] MEDS: buPROPion HCL 150 MG SUSTAINED RELEASE TAB PO SCH ×2 (09:00→20:42)
[2016-11-25] MEDS: FERROUS SULFATE 325 MG (65 MG ELEMENTAL IRON) TAB PO SCH (09:00)
[2016-11-25] MEDS: DOXAZOSIN MESYLATE 4 MG TAB PO SCH ×2 (09:00→20:42)
[2016-11-25] MEDS: LORazepam 1 MG TAB PO PRN (11:05)
--- NOTE | 2016-11-25 18:26 | HHI.PYPN ---
Subjective Remarks Pt seen and discussed with staff. She remains depressed but denies SI/HI. Tolerating medications without side effects. No disruptive behavior. Objective Alert: Yes [place]: Person, Place, Date, Situation Mood: Anxious, Depressed Affect: Restricted Memory Intact: Immediate, Recent, Remote Hallucinations: Other (patient denies any active auditory or visual hallucinations) Delusions: No Delusion Type: Other (no delusion obvious at this time) Suicidal: Ideation (patient denies any suicidal ideation intentions or plan) Homicidal: Ideation (denies any homicidal ideation intentions or plan) Insight/Judgement limited Vitals/IOs Vital Signs Date Time Temp Pulse Resp B/P Pulse Ox O2 Delivery O2 Flow Rate FiO2 11/25/16 06:04 97.9 84 18 125/81 11/24/16 19:43 99 Assessment & Plan Problem List: (1) major depressive disorder chronic recurrent moderate (2) Anxiety ICD Code: F41.9 (3) History of posttraumatic stress disorder (PTSD) ICD Code: Z86.59 (4) DM (diabetes mellitus) ICD Code: E11.9 Assessment & Plan continue current tx plan.Estimated LOS: days Justification for Cont. Inpt. risk of decompensating Request HC Surrog/Guard Advoc?: Shruthi Thomas MD Nov 25, 2016 18:26
[2016-11-25 19:37] VITALS: BP 144/89; PULSE 99; RESP 18; TEMP 98.8; O2SAT 99
[2016-11-25] MEDS: ATORVASTATIN 20 MG TAB PO SCH (20:42)
[2016-11-25] MEDS: ARIPiprazole 10 MG TAB PO SCH (20:42)
[2016-11-26 06:04] VITALS: BP 119/67; PULSE 96; RESP 18; TEMP 97.8; O2SAT 100
[2016-11-26] MEDS: INSULIN ASPART SUPPLEMENTAL SCALE SQ SCH ×4 (07:00→20:29)
[2016-11-26] MEDS: PANTOPRAZOLE SOD 40 MG DELAYED RELEASE TAB PO SCH (09:00)
[2016-11-26] MEDS: LISDEXAMFETAMINE 30 MG PO SCH (09:00)
[2016-11-26] MEDS: LISINOPRIL 20 MG TAB PO SCH ×2 (09:00→20:25)
[2016-11-26] MEDS: DOXAZOSIN MESYLATE 4 MG TAB PO SCH ×2 (09:00→20:25)
[2016-11-26] MEDS: amLODIPine BESYLATE 5 MG TAB PO SCH (09:00)
[2016-11-26] MEDS: buPROPion HCL 150 MG SUSTAINED RELEASE TAB PO SCH ×2 (09:00→20:24)
[2016-11-26] MEDS: FERROUS SULFATE 325 MG (65 MG ELEMENTAL IRON) TAB PO SCH (09:00)
[2016-11-26] MEDS: metFORMIN HCL 500 MG TAB PO SCH (09:00)
--- NOTE | 2016-11-26 11:21 | HHI.PYPN ---
Subjective Remarks Patient was seen and discussed with the staffing administrator. Patient reported that sometimes she has bad nightmare and character and she also seemed to be walking during the sleep and wakes up scared. Had some traumatic events in the past. Today she feels little bit better and not feeling suicidal. No behavior or management problem reported. Denied any active auditory or visual hallucinations. No side effects were complained. We will adjust the medication. community services coordinator to assist in aftercare and discharge planning Review of Systems Except as stated in HPI: all other systems reviewed are Neg Psychiatric: COMPLAINS OF: Anxiety, Depression Objective Alert: Yes [place]: Person, Place, Date, Situation Mood: Anxious, Depressed Affect: Restricted Memory Intact: Immediate, Recent, Remote Hallucinations: Other (patient denies any active auditory or visual hallucinations) Delusions: No Delusion Type: Other (no delusion obvious at this time) Suicidal: Ideation (patient denies any suicidal ideation intentions or plan) Homicidal: Ideation (denies any homicidal ideation intentions or plan) Insight/Judgement Fair Remarks Attention and concentration normal. Gait normal. Language normal. Fund of knowledge average Vitals/IOs Vital Signs Date Time Temp Pulse Resp B/P Pulse Ox O2 Delivery O2 Flow Rate FiO2 11/26/16 06:04 97.8 96 18 119/67 100 Assessment & Plan Problem List: (1) major depressive disorder chronic recurrent moderate (2) Anxiety ICD Code: F41.9 (3) History of posttraumatic stress disorder (PTSD) ICD Code: Z86.59 (4) DM (diabetes mellitus) ICD Code: E11.9 Assessment & Plan Estimated LOS: days Justification for Cont. Inpt. Monitoring of the medication and stabilizing her mood. And risk for safety Request HC Surrog/Guard Advoc?: No Dell Noel MD Nov 26, 2016 11:21
[2016-11-26 19:39] VITALS: BP 159/54; PULSE 101; RESP 19; TEMP 98.7; O2SAT 100
[2016-11-26] MEDS: ARIPiprazole 15 MG TAB PO SCH (20:25)
[2016-11-26] MEDS: ATORVASTATIN 20 MG TAB PO SCH (20:25)
[2016-11-26] MEDS: LORazepam 1 MG TAB PO PRN (20:27)
[2016-11-27 06:11] VITALS: BP 137/90; PULSE 79; RESP 16; TEMP 98.1; O2SAT 99
[2016-11-27] MEDS: INSULIN ASPART SUPPLEMENTAL SCALE SQ SCH ×4 (06:36→21:00)
[2016-11-27] MEDS: LISDEXAMFETAMINE 30 MG PO SCH (09:00)
[2016-11-27] MEDS: metFORMIN HCL 500 MG TAB PO SCH (09:14)
[2016-11-27] MEDS: PANTOPRAZOLE SOD 40 MG DELAYED RELEASE TAB PO SCH (09:14)
[2016-11-27] MEDS: DOXAZOSIN MESYLATE 4 MG TAB PO SCH ×2 (09:14→20:33)
[2016-11-27] MEDS: buPROPion HCL 150 MG SUSTAINED RELEASE TAB PO SCH ×2 (09:14→20:33)
[2016-11-27] MEDS: amLODIPine BESYLATE 5 MG TAB PO SCH (09:14)
[2016-11-27] MEDS: LISINOPRIL 20 MG TAB PO SCH ×2 (09:15→20:33)
[2016-11-27] MEDS: FERROUS SULFATE 325 MG (65 MG ELEMENTAL IRON) TAB PO SCH (09:15)
--- NOTE | 2016-11-27 12:15 | HHI.PYPN ---
Subjective Remarks Patient was seen and discussed with the nurse staff industrial. Patient reported that she has been feeling much better today had no nightmares or night terror and feels hopeful about the future. Denied any suicidal ideation intentions or plan. Denied any auditory or visual hallucinations. No behavior or management problem reported. Wants to go home and willing to take the medication and follow-up as an outpatient. Continue with the same treatment. We will assess social services director for aftercare and discharge planning Review of Systems Except as stated in HPI: all other systems reviewed are Neg Psychiatric: COMPLAINS OF: Mood changes, Depression Objective Alert: Yes [place]: Person, Place, Date, Situation Mood: Depressed Affect: Restricted Memory Intact: Immediate, Recent, Remote Hallucinations: Other (patient denies any active auditory or visual hallucinations) Delusions: No Delusion Type: Other (no delusion obvious at this time) Suicidal: Ideation (patient denies any suicidal ideation intentions or plan) Homicidal: Ideation (denies any homicidal ideation intentions or plan) Insight/Judgement Fair Vitals/IOs Vital Signs Date Time Temp Pulse Resp B/P Pulse Ox O2 Delivery O2 Flow Rate FiO2 11/27/16 06:11 98.1 79 16 137/90 99 Assessment & Plan Problem List: (1) major depressive disorder chronic recurrent moderate (2) Anxiety ICD Code: F41.9 (3) History of posttraumatic stress disorder (PTSD) ICD Code: Z86.59 (4) DM (diabetes mellitus) ICD Code: E11.9 Assessment & Plan Estimated LOS: days Justification for Cont. Inpt. Monitoring of the medication Request HC Surrog/Guard Advoc?: No Dell Noel MD Nov 27, 2016 12:15
[2016-11-27 19:38] VITALS: BP 147/89; PULSE 85; RESP 18; TEMP 98.5; O2SAT 100
[2016-11-27] MEDS: ATORVASTATIN 20 MG TAB PO SCH (20:32)
[2016-11-27] MEDS: ARIPiprazole 15 MG TAB PO SCH (20:33)
[2016-11-27] MEDS: LORazepam 1 MG TAB PO PRN (23:23)
[2016-11-27] MEDS: ACETAMINOPHEN 325 MG TAB PO PRN (23:25)
[2016-11-28 05:25] VITALS: BP 138/92; PULSE 86; RESP 18; TEMP 97.8; O2SAT 97
[2016-11-28] MEDS: INSULIN ASPART SUPPLEMENTAL SCALE SQ SCH ×2 (06:14→11:00)
[2016-11-28 07:48] VITALS: BP 116/73
[2016-11-28] MEDS: PANTOPRAZOLE SOD 40 MG DELAYED RELEASE TAB PO SCH (08:42)
[2016-11-28] MEDS: amLODIPine BESYLATE 5 MG TAB PO SCH (08:42)
[2016-11-28] MEDS: LISINOPRIL 20 MG TAB PO SCH (08:42)
[2016-11-28] MEDS: buPROPion HCL 150 MG SUSTAINED RELEASE TAB PO SCH (08:42)
[2016-11-28] MEDS: DOXAZOSIN MESYLATE 4 MG TAB PO SCH (08:42)
[2016-11-28] MEDS: metFORMIN HCL 500 MG TAB PO SCH (08:42)
[2016-11-28] MEDS: FERROUS SULFATE 325 MG (65 MG ELEMENTAL IRON) TAB PO SCH (08:42)
[2016-11-28] MEDS: LISDEXAMFETAMINE 30 MG PO SCH (08:43)
--- NOTE | 2016-11-28 11:16 | HHI.DS ---
Psychiatry Discharge Summary Inpatient Psychiatric care?: Yes Advance Directive: No Reason Not Provided: DENIES Mental Health AdvanceDirective: No Health Care Proxy: No Admission Admission Date Nov 20, 2016 at 19:44 Admission Diagnosis: (1) major depressive disorder chronic recurrent moderate (2) History of posttraumatic stress disorder (PTSD) ICD Code: Z86.59 GAF Score: 45 Brief History This is a 41-year-old black of single female who came to the emergency room for help but request her therapist because she was feeling under a lot of stress. She was also feeling more depressed and thinking about wanting to harm herself by walking in front of the traffic. Patient has been seeing a therapist and Dr. Gorman who is trying to adjust the medication and they wanted her to be hospitalized for stabilization on the medication. Patient also reported that she had stopped taking the medication because it wasn't working and then she became more depressed. She also admitted to having some mood swings for the last several years. At the present time she denied any active auditory or visual hallucinations or paranoia. In the past she has attempted overdose about couple months ago and was hospitalized. She has a history of PTSD depression and anxiety. She is also worried about her physical health and suffers with diabetes and high blood pressure and there is some syndrome that she has. She is single has no children. 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 She had a history of substance abuse amphetamine type and she is also has ADHD and taking Y violence. In the past she has taken Wellbutrin and Prozac with some relief. She feels safe in the hospital and willing to cooperate with the treatment. Tobacco Use In Past 30 Days: No Tobacco Past 30 Days Alcohol Use: Never Hospital Course Patient was started was supportive treatment. She persevered in all the therapeutic activity on the floor. Her medication was adjusted. She started to feel better. Was willing to take the medication and follow-up as an outpatient. She denied any suicidal ideation intentions of plan denied any active auditory or visual hallucinations she was feeling hopeful about the future at that point arrangements were made for her to be discharged Results Blood Pressure 116 / 73 Vital Signs Date Time Temp Pulse Resp B/P Pulse Ox O2 Delivery O2 Flow Rate FiO2 11/28/16 07:48 116/73 11/28/16 05:25 97.8 86 18 97 Please see the EMR Summary of Major Lab Results Nothing significant Summary of Procedures None Imaging Last Impressions Head CT 11/20/16 0000 Signed Impressions: Service Date/Time: Sunday, November 20, 2016 03:29 - CONCLUSION: Normal examination. Tor Corcoran Jr., MD Pending results at discharge: No Medications # of Antipsychotic meds at D/C: 1 Appropriate >1 Antipsych meds?: 2 Approp Antipsych med options 1 - Minimum of three failed multiple trials of monotherapy. Discharge Discharge Date: Nov 28, 2016 Discharge Diagnosis: (1) major depressive disorder chronic recurrent moderate Diagnosis: Principal (2) History of posttraumatic stress disorder (PTSD) Diagnosis: Principal ICD Code: Z86.59 Mental Status Exam at Disch Patient was alert oriented 3 cooperative casually dressed. Her speech was clear spontaneous without any evidence of loose associations or flights of ideas or pressure speech her mood was described as feeling fine was willing to take the medication and follow-up as an outpatient denied any suicidal ideation intentions or plan. Denied any auditory or visual hallucinations Pt Condition on Discharge: Stable Discharge Disposition: Discharge Home Discharge Instructions Diet Instructions: As Tolerated, No Restrictions Activities you can perform: Regular-No Restrictions Scheduled Appointment: [facility] Appointment Date: Dec 12, 2016 Appointment Time: 2:30pm Discharge Time <= 30 minutes Discharge/Advance Care Plan Health Problems: (1) major depressive disorder chronic recurrent moderate (2) Anxiety (3) History of posttraumatic stress disorder (PTSD) (4) DM (diabetes mellitus) Goals to promote your health * To prevent worsening of your condition and complications * To maintain your health at the optimal level Directions to meet your goals Take your medications as prescribed Follow your dietary instruction Follow activity as directed Keep your appointments as scheduled Take your immunizations and boosters as scheduled If your symptoms worsen call your PCP, if no PCP go to Urgent Care Center or Emergency Room For 10/06 questions related to your inpatient stay or results of tests pending at discharge, please contact Dr. Dell Noel at Smoking is Dangerous to Your Health. Avoid second hand smoking Dell Noel MD Nov 28, 2016 11:16
[2016-11-28] MEDS ORDERED: ARIP1TAB13 PO (11:18)
[2016-11-28] MEDS ORDERED: BUPR150CR PO (11:18)
== END 2016-11-28 14:00 | disposition home or self-care (01) | DRG 885 ==
LOC: NEPE 20:36 → NEDA 11-20 19:44 → H260 11-20 21:15
PROVIDERS: ADMIT Psychiatry & Neurology Psychiatry; ATTEND Psychiatry & Neurology Psychiatry
DX: F33.1 Major depressive disorder, recurrent, moderate (principal); R45.851 Suicidal ideations; E11.9 Type 2 diabetes mellitus without complications; I10 Essential (primary) hypertension; F43.10 Post-traumatic stress disorder, unspecified; F41.9 Anxiety disorder, unspecified; F90.9 Attention-deficit hyperactivity disorder, unspecified type; E78.5 Hyperlipidemia, unspecified; D64.9 Anemia, unspecified; K21.9 Gastro-esophageal reflux disease without esophagitis; G47.30 Sleep apnea, unspecified; M54.2 Cervicalgia; M54.9 Dorsalgia, unspecified; R51 Headache; G89.29 Other chronic pain; Z62.810 Personal history of physical and sexual abuse in childhood; Z79.84 Long term (current) use of oral hypoglycemic drugs; Z88.8 Allergy status to other drugs, medicaments and biological substances; Z88.1 Allergy status to other antibiotic agents
CPT/HCPCS: 70450; 80048; 80053; 80061; 80307; 80320; 81001; 82728; 82948; 83036; 83540; 83550; 83735; 84436; 84443; 84703; 85025; 85044; 93005; J1200

== ENCOUNTER 2016-12-08 20:49 | Emergency (ER) | payer SELFPAY ==
[~2016-12-08] VITALS: Ht 162.6 cm; Wt 81.0 kg
[~2016-12-08 20:49] MED LIST changes: +ARIP1TAB13 PO; +BUPR150CR PO; +DOXA4TAB3 PO; +HUMI40KI SQ; +LISI-515 PO; +LORA-373 PO; +METF500T PO; +PLAQ200T PO; +VYVA50CA3 PO; +WELL200T PO
[2016-12-08 20:52] VITALS: BP 155/89; PULSE 95; RESP 16; TEMP 98.2; O2SAT 100
[2016-12-08] MEDS ORDERED: FLUT1SPR9 EACH NARE (22:07)
[2016-12-08] MEDS ORDERED: AUGM875T PO (22:07)
--- NOTE | 2016-12-08 22:13 | PD ---
HPI Chief Complaint: Cold / Flu Symptoms Time Seen by Provider: 22:00 Travel History International Travel<30 days: No Contact w/Intl Traveler<30days: No Traveled to known affect area: No History of Present Illness HPI 41-year-old female presents with sinus congestion and sinus pressure. Symptoms started 2 days ago. Associated itching in the ears and itching in the throat. Denies cough, fevers, chills. No sick contacts, no recent travel. She has not tried using any [id number] medication for symptom relief. No other complaints. PFSH Past Medical History Hx Anticoagulant Therapy: Yes (ASA) Arthritis: No Asthma: No Autoimmune Disease: Yes (ANTICARDOLIPID ) Anxiety: Yes Depression: Yes Heart Rhythm Problems: No Cancer: No Cardiac Catheterization: No Cardiovascular Problems: Yes (HTN) High Cholesterol: No Chemotherapy: No Chest Pain: No Congestive Heart Failure: No COPD: No Cerebrovascular Accident: No Diabetes: Yes (METFORMIN) Diminished Hearing: No Endocrine: Yes Gastrointestinal Disorders: Yes (ACID REFLUX) GERD: Yes Glaucoma: No Genitourinary: No Headaches: No Hepatitis: No Hiatal Hernia: No Hypertension: Yes Immune Disorder: Yes Kidney Stones: No Musculoskeletal: Yes (BACK AND NECK PAIN) Neurologic: Yes Psychiatric: Yes (ANXIETY & DEPRESSION) Reproductive: No Respiratory: Yes (BRONCHITIS,SLEEP APNEA) Migraines: Yes Myocardial Infarction: No Radiation Therapy: No Renal Failure: No Seizures: Yes Sickle Cell Disease: No Sleep Apnea: Yes (DOES NOT WEAR CPAP) Thyroid Disease: No Ulcer: No Menopausal: Yes : 0 Para: 0 Miscarriage: 0 : 0 Ovarian Cysts: Yes Past Surgical History Abdominal Surgery: No AICD: No Body Medical Devices: NONE Cardiac Surgery: No Coronary Artery Bypass Graft: No Ear Surgery: No Endocrine Surgery: No Eye Surgery: No Genitourinary Surgery: No Gynecologic Surgery: Yes (CYSTS IN "PELVIS"" PER PATIENT) Joint Replacement: No Oral Surgery: Yes Pacemaker: No Other Surgery: Yes Family History Family Hypercholesterolemia: Yes Social History Alcohol Use: No Tobacco Use: No Substance Use: Yes (POS AMPHETAMINES) Allergies-Medications (Allergen,Severity, Reaction): Coded Allergies: Hydromorphone (Verified Allergy, Severe, Itching, 12/08/16) Iodine (Verified Allergy, Severe, Hives, 12/08/16) NOT ALLERGIC TO BETADINE Ondansetron (Verified Allergy, Severe, Itching, 12/08/16) Tetracycline (Verified Allergy, Severe, Hives, 12/08/16) Reported Meds & Prescriptions Reported Meds & Active Scripts Active Flonase Allergy Relief Children Nasal [place] (Fluticasone Nasal [place]) 50 Mcg/ Act [place] 2 [place] EACH NARE DAILY 10 Days 50 mcg/spray Augmentin (Amoxicillin-Clavulanate) 875-125 mg Tab 875 Mg PO BID 10 Days not for use in CrCl <30 ml/min. Wellbutrin SR 12 HR (Bupropion HCl) 150 Mg Tab 150 Mg PO BID 14 Days Aripiprazole 15 Mg Tab 15 Mg PO HS 14 Days Ibuprofen 600 Mg Tab 600 Mg PO Q8HR PRN 5 Days Reported Lorazepam 0.5 Mg Tab 0.5 Mg PO DAILY PRN Vyvanse (Lisdexamfetamine Dimesylate) 50 Mg Cap 50 Mg PO DAILY Wellbutrin SR 12 HR (Bupropion HCl) 200 Mg Tab 200 Mg PO Q12HR PRN Doxazosin (Doxazosin Mesylate) 4 Mg Tab 4 Mg PO BID Lisinopril 20 Mg Tab 20 Mg PO BID Metformin (Metformin HCl) 500 Mg Tab 500 Mg PO DAILY With a meal Plaquenil (Hydroxychloroquine Sulfate) 200 Mg Tab 200 Mg PO Take with food Humira 2-Pack Inj (Adalimumab 2-Pack Inj) 40 Mg/0.8 Ml Syr 40 Mg SQ Q7D Review of Systems Except as stated in HPI: all other systems reviewed are Neg Physical Exam Narrative GENERAL: Well-developed well-nourished female in no acute distress SKIN: Warm and dry. HEAD: Atraumatic. Normocephalic. EYES: Pupils equal and round. No scleral icterus. No injection or drainage. ENT: No nasal bleeding or discharge. Mucous membranes pink and moist. Tympanic membranes reveal normal anatomic landmarks without erythema or air fluid level, no oropharyngeal erythema or exudate NECK: Trachea midline. No JVD. No lymphadenopathy CARDIOVASCULAR: Regular rate and rhythm. No murmur appreciated. RESPIRATORY: No accessory muscle use. Clear to auscultation. Breath sounds equal bilaterally. Data Data Last Documented VS Vital Signs Date Time Temp Pulse Resp B/P Pulse Ox O2 Delivery O2 Flow Rate FiO2 12/08/16 20:52 98.2 95 16 155/89 100 Room Air Orders Oxymetazoline 0.05% Jonn [place] (Afrin 0.0 (12/08/16 22:15) Fluticasone Jonn Spr (Flonase Jonn Spr) (12/08/16 22:15) Pseudoephedrine (Sudafed) (12/08/16 22:15) MDM Medical Decision Making Medical Screen Exam Complete: Yes Emergency Medical Condition: Yes Medical Record Reviewed: Yes Differential Diagnosis Sinusitis, rhinitis, allergic rhinitis, eustachian tube dysfunction Narrative Course Examination and history are consistent with sinusitis. She is being given Flonase, Afrin spray and Sudafed here in the emergency room and she is being discharged with Flonase and Augmentin prescriptions. Diagnosis Primary Impression: Acute rhinosinusitis Additional Instructions: Medication as prescribed. As discussed use [id number]-yju-jwmuchi Sudafed as a nasal decongestant. You can also use Afrin nasal spray for up to 3 days. Do not use Afrin for greater than 3 days as this can cause rebound congestion. Return for any emergent medical conditions. Med/Other Pt SpecificInfo: Prescription(s) given Scripts Fluticasone Nasal [place] (Flonase Allergy Relief Children Nasal [place])50 Mcg/Act Spray2 [place] EACH NARE DAILY 10 Days Ref 0 50 mcg/spray Prov:Dave Jenkins MD 12/08/16 Amoxicillin-Clavulanate (Augmentin)875-125 mg Tek247 Mg PO BID 10 Days Ref 0 not for use in CrCl <30 ml/min. Prov:Dave Jenkins MD 12/08/16 Disposition: 01 DISCHARGE HOME Condition: Stable Chun Corral Dec 08, 2016 22:12
[2016-12-08] MEDS ORDERED: OXYMETAZOLINE HCL 0.05% 15 ML NASAL SPRAY NASAL ONE (22:15)
[2016-12-08] MEDS ORDERED: FLUTICASONE PROPIONATE 50 MCG/ACT 16 GM NASAL SPRAY NASAL ONE (22:15)
[2016-12-08] MEDS ORDERED: PSEUDOEPHEDRINE HCL 30 MG TAB PO ONE (22:15)
== END 2016-12-08 22:37 | disposition home or self-care (01) ==
LOC: NEPB 20:49
DX: J01.90 Acute sinusitis, unspecified (principal); E11.9 Type 2 diabetes mellitus without complications; F41.8 Other specified anxiety disorders; I10 Essential (primary) hypertension; Z79.82 Long term (current) use of aspirin; Z79.4 Long term (current) use of insulin; F19.10 Other psychoactive substance abuse, uncomplicated
CPT/HCPCS: 99283

== ENCOUNTER 2016-12-28 14:07 | Inpatient (IN) | payer MEDICAID ==
[2016-12-28] VITALS (7 sets, daily range): BP systolic 147–186; BP diastolic 63–108; PULSE 69–96; RESP 16; TEMP 97.2–98.9; O2SAT 98–99
[~2016-12-28] VITALS: Ht 162.6 cm; Wt 81.5 kg
[~2016-12-28 14:07] MED LIST changes: +AUGM875T PO; +FLUT1SPR9 EACH NARE
[2016-12-28] MEDS ORDERED: FLUO60TA PO (16:25)
[2016-12-28] MEDS ORDERED: MORPHINE SULFATE 4 MG/ML INJ IV PUSH ONE (16:30)
[2016-12-28 16:56] LABS: AUTOMATED NEUTROPHIL # 3.8 TH/MM3 (1.8-7.7); BASOPHIL % 0.5 % (0.0-2.0); EOSINOPHIL # 0.2 TH/MM3 (0-0.4); EOSINOPHIL % 3.1 % (0.0-4.0); HEMATOCRIT 32.6 % (35.0-46.0); LYMPH % 30.9 % (9.0-44.0); MEAN CELL VOLUME 75.9 FL (80.0-100.0); MEAN CORPUSCULAR HEMOGLOBIN 24.5 PG (27.0-34.0); MEAN CORPUSCULAR HGB CONC 32.3 % (32.0-36.0); MONO % 6.2 % (0.0-8.0); NEUT % 59.3 % (16.0-70.0); PLATELET COUNT 289 TH/MM3 (150-450); RED BLOOD COUNT 4.29 MIL/MM3 (4.00-5.30); RED CELL DISTRIBUTION WIDTH 16.8 % (11.6-17.2); WHITE BLOOD COUNT 6.4 TH/MM3 (4.0-11.0)
[2016-12-28 16:59] LABS: HEMO FLAGS AUTO DIFF
[2016-12-28 17:07] LABS: APTT (PATIENT) 26.7 SEC (24.3-30.1); PROTHROMBIN TIME - PATIENT 10.8 SEC (9.8-11.6)
[2016-12-28 17:08] LABS: ALT (GPT) 22 U/L (10-53); ANION GAP 9 MEQ/L (5-15); AST (GOT) 10 U/L (15-37); BICARBONATE 25.4 MEQ/L (21.0-32.0); BLOOD UREA NITROGEN 9 MG/DL (7-18); CHLORIDE 104 MEQ/L (98-107); GLOMERULAR FILTRATION RATE 92 ML/MIN (>89); POTASSIUM 3.9 MEQ/L (3.5-5.1); SODIUM (NA) 138 MEQ/L (136-145)
[2016-12-28 17:12] LABS: ALKALINE PHOSPHATASE 58 U/L (45-117); BETA HCG QUANT LESS THAN 1 MIU/ML (0-5); TOTAL BILIRUBIN ADULT 0.2 MG/DL (0.2-1.0)
[2016-12-28 17:22] LABS: BLOOD, URINE NEG (NEG); COMMENT (UR) CULT NOT INDICATED; CULTURE IF INDICATED CULT NOT INDICATED; GLUCOSE,URINE NEG (NEG); KETONE, URINE NEG (NEG); MUCUS URINE FEW /lpf (OCC); NITRITE,URINE NEG (NEG); SQUAMOUS EPITHELIAL CELL URINE <1 /hpf (0-5); URINE COLOR LIGHT-YELLOW (YELLW/STRAW)
--- NOTE | 2016-12-28 17:29 | PD ---
HPI Chief Complaint: Skin Problem Time Seen by Provider: 16:11 Travel History International Travel<30 days: No Contact w/Intl Traveler<30days: No Traveled to known affect area: No History of Present Illness HPI 41-year-old female with history of hidradenitis suppurativa, was on humira which controlled her symptoms, however because of insurance issues she has not been on this medication for over a week, here for evaluation of painful/ draining areas on her chest/groin. Patient also believes that some of the areas may be infected in her groin. The most painful lesions on her left labia. She denies fevers or chills. Pain is severe, constant, worse with movement and palpation. PFSH Past Medical History Hx Anticoagulant Therapy: Yes (ASA) Arthritis: No Asthma: No Autoimmune Disease: Yes (ANTICARDOLIPID ) Anxiety: Yes Depression: Yes Heart Rhythm Problems: No Cancer: No Cardiac Catheterization: No Cardiovascular Problems: Yes (HTN) High Cholesterol: No Chemotherapy: No Chest Pain: No Congestive Heart Failure: No COPD: No Cerebrovascular Accident: No Diabetes: Yes (METFORMIN) Patient Takes Glucophage: Yes Diminished Hearing: No Endocrine: Yes Gastrointestinal Disorders: Yes (ACID REFLUX) GERD: Yes Glaucoma: No Genitourinary: No Headaches: No Hepatitis: No Hiatal Hernia: No Hypertension: Yes Immune Disorder: Yes Kidney Stones: No Musculoskeletal: Yes (BACK AND NECK PAIN) Neurologic: Yes Psychiatric: Yes (ANXIETY & DEPRESSION) Reproductive: No Respiratory: Yes (BRONCHITIS,SLEEP APNEA) Migraines: Yes Myocardial Infarction: No Radiation Therapy: No Renal Failure: No Seizures: Yes Sickle Cell Disease: No Sleep Apnea: Yes (DOES NOT WEAR CPAP) Thyroid Disease: No Ulcer: No Influenza Vaccination: No ?: Not LMP: 12/19/2016 Menopausal: Yes : 0 Para: 0 Miscarriage: 0 : 0 Ovarian Cysts: Yes Past Surgical History Abdominal Surgery: No AICD: No Body Medical Devices: NONE Cardiac Surgery: No Coronary Artery Bypass Graft: No Ear Surgery: No Endocrine Surgery: No Eye Surgery: No Genitourinary Surgery: No Gynecologic Surgery: Yes (CYSTS IN "PELVIS"" PER PATIENT) Joint Replacement: No Oral Surgery: Yes Pacemaker: No Other Surgery: Yes Family History Family Myocardial Infarction: Yes (MATERNAL GRANDFATHER) Family Hypercholesterolemia: Yes Social History Alcohol Use: No Tobacco Use: No Substance Use: No (PT DENIES) Allergies-Medications (Allergen,Severity, Reaction): Coded Allergies: Hydromorphone (Verified Allergy, Severe, Itching, 12/28/16) Iodine (Verified Allergy, Severe, Hives, 12/28/16) NOT ALLERGIC TO BETADINE Ondansetron (Verified Allergy, Severe, Itching, 12/28/16) Tetracycline (Verified Allergy, Severe, Hives, 12/28/16) Reported Meds & Prescriptions Reported Meds & Active Scripts Active Flonase Allergy Relief Children Nasal [place] (Fluticasone Nasal [place]) 50 Mcg/ Act [place] 2 [place] EACH NARE DAILY 10 Days 50 mcg/spray Reported Fluoxetine (Fluoxetine HCl) 60 Mg Tab 60 Mg PO DAILY Lorazepam 0.5 Mg Tab 0.5 Mg PO DAILY PRN Vyvanse (Lisdexamfetamine Dimesylate) 50 Mg Cap 50 Mg PO DAILY Wellbutrin SR 12 HR (Bupropion HCl) 200 Mg Tab 200 Mg PO Q12HR PRN Doxazosin (Doxazosin Mesylate) 4 Mg Tab 8 Mg PO BID Lisinopril 20 Mg Tab 20 Mg PO BID Metformin (Metformin HCl) 500 Mg Tab 500 Mg PO DAILY With a meal Humira 2-Pack Inj (Adalimumab 2-Pack Inj) 40 Mg/0.8 Ml Syr 40 Mg SQ Q7D Review of Systems Except as stated in HPI: all other systems reviewed are Neg Physical Exam Narrative GENERAL: Well-developed, well-nourished, comfortable, no acute distress. SKIN: Anterior chest wall between her breasts there are a couple areas of induration with spontaneous drainage of yellow purulence. Bilateral inguinal region there are also areas of induration that are spontaneously draining yellow discharge. Left labia there is a moderate-sized area of induration and tenderness. There is mild surrounding erythema around all of these lesions and mild warmth. HEAD: Atraumatic. Normocephalic. EYES: Pupils equal and round. No scleral icterus. No injection or drainage. ENT: Mucous membranes pink and moist. CARDIOVASCULAR: Regular rate and rhythm. RESPIRATORY: No accessory muscle use. Clear to auscultation. Breath sounds equal bilaterally. GASTROINTESTINAL: Abdomen soft, non-tender, nondistended. MUSCULOSKELETAL: No obvious deformities. No clubbing. No cyanosis. No edema. NEUROLOGICAL: Awake and alert. No obvious cranial nerve deficits. Motor grossly within normal limits. Normal speech. PSYCHIATRIC: Appropriate mood and affect; insight and judgment normal. Data Data Last Documented VS Vital Signs Date Time Temp Pulse Resp B/P Pulse Ox O2 Delivery O2 Flow Rate FiO2 12/28/16 19:06 98.9 78 16 164/88 99 Room Air Orders Complete Blood Count With Diff (12/28/16 16:18) Comprehensive Metabolic Panel (12/28/16 16:18) Beta Hcg (Quant/Titer) (12/28/16 16:18) Prothrombin Time / Inr (Pt) (12/28/16 16:18) Act Partial Throm Time (Ptt) (12/28/16 16:18) Lactic Acid Sepsis Protocol (12/28/16 16:18) Urinalysis - C+S If Indicated (12/28/16 16:18) Blood Culture (12/28/16 16:18) Ecg Monitoring (12/28/16 16:18) Iv Access Insert/Monitor (12/28/16 16:18) Oximetry (12/28/16 16:18) Ct Abd/Pel W/O Iv Contrast (12/28/16 ) Morphine Inj (Morphine Inj) (12/28/16 16:30) Wound Culture And Gram Stain (12/28/16 16:21) Vancomycin Inj (Vancomycin Inj) (12/28/16 18:30) Morphine Inj (Morphine Inj) (12/28/16 18:45) Labs Laboratory Tests Test 12/28/16 12/28/16 12/28/16 16:35 16:40 16:55 White Blood Count 6.4 TH/MM3 Red Blood Count 4.29 MIL/MM3 Hemoglobin 10.5 GM/DL Hematocrit 32.6 % Mean Corpuscular Volume 75.9 FL Mean Corpuscular Hemoglobin 24.5 PG Mean Corpuscular Hemoglobin 32.3 % Concent Red Cell Distribution Width 16.8 % Platelet Count 289 TH/MM3 Mean Platelet Volume 8.3 FL Neutrophils (%) (Auto) 59.3 % Lymphocytes (%) (Auto) 30.9 % Monocytes (%) (Auto) 6.2 % Eosinophils (%) (Auto) 3.1 % Basophils (%) (Auto) 0.5 % Neutrophils # (Auto) 3.8 TH/MM3 Lymphocytes # (Auto) 2.0 TH/MM3 Monocytes # (Auto) 0.4 TH/MM3 Eosinophils # (Auto) 0.2 TH/MM3 Basophils # (Auto) 0.0 TH/MM3 CBC Comment AUTO DIFF Differential Comment AUTO DIFF CONFIRMED Platelet Estimate NORMAL Platelet Morphology Comment NORMAL Tear Drop Cells 1+ Prothrombin Time 10.8 SEC Prothromb Time International 1.0 RATIO Ratio Activated Partial 26.7 SEC Thromboplast Time Lactic Acid Level 0.9 mmol/L Sodium Level 138 MEQ/L Potassium Level 3.9 MEQ/L Chloride Level 104 MEQ/L Carbon Dioxide Level 25.4 MEQ/L Anion Gap 9 MEQ/L Blood Urea Nitrogen 9 MG/DL Creatinine 0.83 MG/DL Estimat Glomerular Filtration 92 ML/MIN Rate Random Glucose 88 MG/DL Calcium Level 8.8 MG/DL Total Bilirubin 0.2 MG/DL Aspartate Amino Transf 10 U/L (AST/SGOT) Alanine Aminotransferase 22 U/L (ALT/SGPT) Alkaline Phosphatase 58 U/L Total Protein 7.7 GM/DL Albumin 3.4 GM/DL Human Chorionic Gonadotropin, LESS THAN 1 Quant MIU/ML Urine Color LIGHT-YELLOW Urine Turbidity CLEAR Urine pH 6.0 Urine Specific [place] 1.015 Urine Protein NEG mg/dL Urine Glucose (UA) NEG mg/dL Urine Ketones NEG mg/dL Urine Occult Blood NEG Urine Nitrite NEG Urine Bilirubin NEG Urine Urobilinogen LESS THAN 2.0 MG/DL Urine Leukocyte Esterase NEG Urine Squamous Epithelial <1 /hpf Cells Urine Bacteria /hpf Urine Mucus FEW /lpf Microscopic Urinalysis Comment CULT NOT INDICATED MDM Medical Decision Making Medical Screen Exam Complete: Yes Emergency Medical Condition: Yes Differential Diagnosis Hidradenitis suppurativa, abscess, cellulitis Narrative Course Initial vital signs show heart rate 91, blood pressure 181/108, pulse ox 98% on room air, oral temp of 98.5F. CBC shows WBC 6.4, hemoglobin 10.5, hematocrit 32.6, platelets 289. CMP is unremarkable. Beta hCG is negative. Lactic acid is 0.9. UA is not suggestive of UTI. CT abdomen pelvis: CONCLUSION: 1. Abnormal stranding of fat in the mons pubis and extending inferiorly into the vulvar region most characteristic of a cellulitis. There is focal skin thickening predominantly in the right inferior mons pubis that could represent small cutaneous abscess. Borderline enlarged lymph nodes in the medial inguinal region. 2. Fibroid uterus measuring up to 13.7 x 9.8 cm. The patient was started on IV vancomycin. The patient's left labia as well as right mons show area of induration. There is no fluctuance. These areas are extremely tender and painful for the patient, however at this time I do not believe that there are fluid collections I can be drained. Patient does have areas of spontaneous drainage on her chest as well as her right inguinal area. Sample sent for culture and sensitivity. Patient will be admitted for further treatment and evaluation of hidradenitis suppurativa, inguinal cellulitis. Case discussed with the patient's primary care physician Dr. Gallo who will admit the patient to her service. Diagnosis Primary Impression: Hidradenitis suppurativa Additional Impression: Cellulitis of groin Admitting Information Admitting Physician Requests: Evangelista Velásquez MD Dec 28, 2016 17:29
[2016-12-28 17:58] LABS: PLATELET ESTIMATE SMEAR NORMAL (NORMAL); PLATELET MORPHOLOGY NORMAL (NORMAL); SCAN/DIFF AUTO DIFF CONFIRMED; TEARDROP RBCS 1+ (NORMAL)
--- NOTE | 2016-12-28 18:11 | RADRPT ---
EXAM DATE/TIME: 12/28/2016 17:38 [facility] COMPARISON: No previous studies available for comparison. INDICATIONS : Hypogastric abdominal pain; evaluate for hydradinitis suppurativa/labial abscess. ORAL CONTRAST: No oral contrast ingested. RADIATION DOSE: 11.79 CTDIvol (mGy) MEDICAL HISTORY : Hypertension. Gastroesophageal reflux disease. Diabetes mellitus type 2.Ovarian cysts. SURGICAL HISTORY : None. ENCOUNTER: Initial ACUITY: 1 day PAIN SCALE: 4/10 LOCATION: Hypogastric abdomen/pelvis TECHNIQUE: Volumetric scanning of the abdomen and pelvis was performed. Using automated exposure control and ad justment of the mA and/or kV according to patient size, radiation dose was kept as low as reasonably achievable to obtain optimal diagnostic quality images. FINDINGS: Lung bases are clear. No acute bony abnormalities. No acute findings in the liver, spleen, adrenals, kidneys or pancreas. No free fluid or bowel obstruc tion. There is mild constipation. There is abnormal stranding of fat in the mons pubis and extending inferiorly into the vulvar region. This is most characteristic of a cellulitis. There is focal thickening of skin in the right inferior mons measuring up to about 12 mm in thickness. This could represent a small cutaneous abscess. Borde rline enlarged lymph nodes present in the medial inguinal region. The uterus is enlarged to 13.7 x 9.8 cm most characteristic of a fibroid uterus. CONCLUSION: 1. Abnormal stranding of fat in the mons pubis and extending inferiorly into the vulvar region most c haracteristic of a cellulitis. There is focal skin thickening predominantly in the right inferior mon s pubis that could represent small cutaneous abscess. Borderline enlarged lymph nodes in the medial i nguinal region. 2. Fibroid uterus measuring up to 13.7 x 9.8 cm. Jordi Greenfield MD on December 28, 2016 at 18:03 Board Certified Radiologist. This report was verified electronically.
[2016-12-28] MEDS ORDERED: VANCOMYCIN INJ 1,000 MG in SODIUM CHLOR 0.9% 250 ML INJ 250 ML IV ONE (18:30)
[2016-12-28] MEDS ORDERED: MORPHINE SULFATE 8 MG/ML INJ IV PUSH ONE (18:45)
[2016-12-28] MEDS ORDERED: SODIUM CHLORIDE 0.9% FLUSH 5 ML FLUSH IVF PRN (19:30)
[2016-12-28] MEDS ORDERED: NALOXONE HCL 0.4 MG/ML AMP IV PRN (20:00)
[2016-12-28] MEDS ORDERED: DEXTROSE 50% IN WATER 50 ML VIAL(D50) IV PUSH PRN (20:00)
[2016-12-28] MEDS ORDERED: ACETAMINOPHEN 325 MG TAB PO PRN (20:00)
[2016-12-28] MEDS ORDERED: SODIUM CHLORIDE 0.9% FLUSH 5 ML FLUSH FLUSH PRN (20:00)
[2016-12-28] MEDS ORDERED: GLUCAGON 1 MG/ML VIAL OTHER PRN (20:00)
[2016-12-28] MEDS: SODIUM CHLORIDE 0.9% FLUSH 5 ML FLUSH FLUSH SCH (20:54)
[2016-12-28] MEDS: LISINOPRIL 20 MG TAB PO SCH (20:54)
[2016-12-28] MEDS: DOXAZOSIN MESYLATE 4 MG TAB PO SCH (20:54)
[2016-12-28] MEDS: ENOXAPARIN SODIUM 40 MG/0.4 ML SYRINGE SQ SCH (20:55)
[2016-12-28] MEDS: SODIUM CHLOR 0.45% 1000 ML INJ 1,000 ML IV SCH (20:55)
[2016-12-28] MEDS ORDERED: SODIUM CHLORIDE 0.9% FLUSH 5 ML FLUSH IVF SCH (21:00)
[2016-12-28] MEDS: hydrOXYzine HCL 25 MG TAB PO PRN (23:22)
[2016-12-28] MEDS: MORPHINE SULFATE 4 MG/ML INJ IV PUSH PRN (23:24)
[2016-12-29 03:15] VITALS: BP 110/74; PULSE 98; RESP 15; TEMP 97.2; O2SAT 100
[2016-12-29] MEDS: MORPHINE SULFATE 4 MG/ML INJ IV PUSH PRN (03:18)
[2016-12-29] MEDS: hydrOXYzine HCL 25 MG TAB PO PRN (04:50)
[2016-12-29] MEDS: LORazepam 0.5 MG TAB PO PRN (05:51)
[2016-12-29 06:30] LABS: AUTOMATED NEUTROPHIL # 3.4 TH/MM3 (1.8-7.7); BASOPHIL % 0.4 % (0.0-2.0); EOSINOPHIL # 0.2 TH/MM3 (0-0.4); EOSINOPHIL % 3.3 % (0.0-4.0); HEMATOCRIT 31.6 % (35.0-46.0); LYMPHOCYTE # 1.6 TH/MM3 (1.0-4.8); MEAN CORPUSCULAR HEMOGLOBIN 24.4 PG (27.0-34.0); MEAN CORPUSCULAR HGB CONC 32.1 % (32.0-36.0); MONO % 7.9 % (0.0-8.0); NEUT % 59.4 % (16.0-70.0); PLATELET COUNT 251 TH/MM3 (150-450); RED BLOOD COUNT 4.16 MIL/MM3 (4.00-5.30); RED CELL DISTRIBUTION WIDTH 17.2 % (11.6-17.2); WHITE BLOOD COUNT 5.7 TH/MM3 (4.0-11.0)
[2016-12-29 06:42] LABS: HEMO FLAGS AUTO DIFF
[2016-12-29 07:00] LABS: ANION GAP 9 MEQ/L (5-15); AST (GOT) 8 U/L (15-37); BICARBONATE 29.2 MEQ/L (21.0-32.0); BLOOD UREA NITROGEN 8 MG/DL (7-18); CHLORIDE 100 MEQ/L (98-107); GLOMERULAR FILTRATION RATE 88 ML/MIN (>89); MAGNESIUM 1.9 MG/DL (1.5-2.5); POTASSIUM 3.4 MEQ/L (3.5-5.1); SODIUM (NA) 138 MEQ/L (136-145)
[2016-12-29 07:04] LABS: ALKALINE PHOSPHATASE 57 U/L (45-117); ALT (GPT) 16 U/L (10-53); TOTAL BILIRUBIN ADULT 0.4 MG/DL (0.2-1.0)
[2016-12-29 08:00] VITALS: BP 102/65; PULSE 78; RESP 16; TEMP 97.6; O2SAT 99
[2016-12-29 08:20] VITALS: O2SAT 93
[2016-12-29] MEDS: FLUTICASONE PROPIONATE 50 MCG/ACT 16 GM NASAL SPRAY EACH NARE SCH (09:00)
[2016-12-29] MEDS: SODIUM CHLORIDE 0.9% FLUSH 5 ML FLUSH FLUSH SCH ×2 (09:00→20:47)
[2016-12-29] MEDS: FLUoxetine HCL 20 MG CAP PO SCH (09:23)
[2016-12-29] MEDS: LISINOPRIL 20 MG TAB PO SCH ×2 (09:24→20:44)
[2016-12-29] MEDS: DOXAZOSIN MESYLATE 4 MG TAB PO SCH ×2 (09:24→20:44)
[2016-12-29] MEDS: metFORMIN HCL 500 MG TAB PO SCH (09:24)
[2016-12-29] MEDS ORDERED: POTASSIUM CHLORIDE 20 MEQ CONTROLLED RELEASE TAB PO ONE ×2 (09:30→10:00)
--- NOTE | 2016-12-29 09:54 | HHI.HP ---
History of Present Illness Service INTERNAL MEDICINE Primary Care Physician TIMOTHY GALLO MD Admission Diagnosis SUPPURATIVE HYDRADENITIS. SEVERE CELLULITIS. Diagnoses: History of Present Illness This patient is a 41 year old female who has a history of not having her Humira medication for two weeks. She states that she could not afford the medication. She started with noticing some raised areas of the skin between her breasts and also in the groin area. They started to have some drainage and were painful. The area for the pubis and vulva became involved with much swelling of the area and significant pain. She came to the [facility] Emergency Room for evaluation at that time. She is found with a severe cellulitis presentation and admitted to the hospital to further assess and treat. She denies any recent travel or any recent major illness or infection. Review of Systems She reports itching that is recurrent and on an ongoing basis. Past Family Social History Allergies: Coded Allergies: Hydromorphone (Verified Allergy, Severe, Itching, 12/28/16) Iodine (Verified Allergy, Severe, Hives, 12/28/16) NOT ALLERGIC TO BETADINE Ondansetron (Verified Allergy, Severe, Itching, 12/28/16) Tetracycline (Verified Allergy, Severe, Hives, 12/28/16) Past Medical History 1. Diabetes Mellitus, Type 2. 2. Post Traumatic Stress Disorder. 3. Hypertension. 4. Hyperlipidemia. 5. Anxiety Disorder. 6. Depression. 7. Migraine Headache. 8. Gastroesophageal Reflux Disease. 9. Chronic Anemia. Past Surgical History She reports previous foot surgery. Physical Exam Vital Signs Vital Signs Date Time Temp Pulse Resp B/P Pulse Ox O2 Delivery O2 Flow Rate FiO2 12/29/16 08:00 97.6 78 16 102/65 99 12/29/16 03:15 97.2 98 15 110/74 100 12/28/16 22:43 97.2 96 16 147/88 98 12/28/16 22:16 98.7 78 16 167/63 97 12/28/16 21:34 99 21 12/28/16 19:48 16 12/28/16 19:07 16 12/28/16 19:06 98.9 78 16 164/88 99 Room Air 12/28/16 18:37 69 16 182/101 99 Room Air 12/28/16 16:11 77 16 186/95 99 Room Air 12/28/16 14:14 98.5 91 16 181/108 98 Physical Exam GENERAL: This is a well-nourished, well-developed patient. She complains of recurrent itching and pain for skin lesions. SKIN: There are pustular and somewhat ulcerated areas for her skin of the chest , groin, pubis and vulvar areas. HEAD: Atraumatic. Normocephalic. No temporal or scalp tenderness. EYES: Pupils equal round and reactive. Extraocular motions intact. No scleral icterus. No injection or drainage. ENT: Nasal passages are patent and without drainage. Throat without erythema, tonsillar hypertrophy or exudate. Uvula midline. Airway patent. NECK: Trachea midline. No JVD, thyromegaly, carotid bruits or masses. Supple, nontender, no meningeal signs. CARDIOVASCULAR: Regular rate and rhythm without murmurs, gallops, or rubs. RESPIRATORY: Clear to auscultation. Breath sounds equal bilaterally. No wheezes , rales, or rhonchi. GASTROINTESTINAL: Abdomen soft, non-tender and nondistended. No hepato- splenomegaly, or palpable masses. No guarding. MUSCULOSKELETAL: Extremities without clubbing, cyanosis, or edema. No joint tenderness or effusion noted. No calf tenderness. Negative Homans sign bilaterally. NEUROLOGICAL: Awake and alert. Cranial nerves II through XII intact. Motor and sensory grossly within normal limits. Strength testing is 5/5 in all muscle groups. Normal speech. Laboratory Laboratory Tests Test 12/28/16 12/28/16 12/28/16 12/29/16 16:35 16:40 16:55 05:16 White Blood Count 6.4 5.7 Red Blood Count 4.29 4.16 Hemoglobin 10.5 10.1 Hematocrit 32.6 31.6 Mean Corpuscular Volume 75.9 76.0 Mean Corpuscular Hemoglobin 24.5 24.4 Mean Corpuscular Hemoglobin 32.3 32.1 Concent Red Cell Distribution Width 16.8 17.2 Platelet Count 289 251 Mean Platelet Volume 8.3 8.5 Neutrophils (%) (Auto) 59.3 59.4 Lymphocytes (%) (Auto) 30.9 29.0 Monocytes (%) (Auto) 6.2 7.9 Eosinophils (%) (Auto) 3.1 3.3 Basophils (%) (Auto) 0.5 0.4 Neutrophils # (Auto) 3.8 3.4 Lymphocytes # (Auto) 2.0 1.6 Monocytes # (Auto) 0.4 0.5 Eosinophils # (Auto) 0.2 0.2 Basophils # (Auto) 0.0 0.0 CBC Comment AUTO DIFF AUTO DIFF Differential Comment AUTO DIFF CONFIRMED Platelet Estimate NORMAL Platelet Morphology Comment NORMAL Tear Drop Cells 1+ Prothrombin Time 10.8 Prothromb Time International 1.0 Ratio Activated Partial 26.7 Thromboplast Time Lactic Acid Level 0.9 Sodium Level 138 138 Potassium Level 3.9 3.4 Chloride Level 104 100 Carbon Dioxide Level 25.4 29.2 Anion Gap 9 9 Blood Urea Nitrogen 9 8 Creatinine 0.83 0.86 Estimat Glomerular Filtration 92 88 Rate Random Glucose 88 106 Calcium Level 8.8 8.5 Total Bilirubin 0.2 0.4 Aspartate Amino Transf 10 8 (AST/SGOT) Alanine Aminotransferase 22 16 (ALT/SGPT) Alkaline Phosphatase 58 57 Total Protein 7.7 7.4 Albumin 3.4 3.2 Human Chorionic Gonadotropin, LESS THAN 1 Quant Urine Color LIGHT-YELLOW Urine Turbidity CLEAR Urine pH 6.0 Urine Specific [place] 1.015 Urine Protein NEG Urine Glucose (UA) NEG Urine Ketones NEG Urine Occult Blood NEG Urine Nitrite NEG Urine Bilirubin NEG Urine Urobilinogen LESS THAN 2.0 Urine Leukocyte Esterase NEG Urine Squamous Epithelial <1 Cells Urine Bacteria Urine Mucus FEW Microscopic Urinalysis Comment CULT NOT INDICATED Magnesium Level 1.9 Date/Time Procedure Status Source Growth 12/28/16 17:20 Gram Stain Received Wound Abdomen Pending 12/28/16 17:20 Wound Culture Received Wound Abdomen Pending 12/28/16 16:40 Aerobic Blood Culture Received Blood Peripheral Pending 12/28/16 16:40 Anaerobic Blood Culture Received Blood Peripheral Pending Result Diagram: 12/29/1616 12/29/1616 Assessment and Plan Assessment and Plan ASSESSMENT 1. Suppurative Hydradenitis. 2. Severe Cellulitis. 3. Hypokalemia. 4. Hypertension. 5. Diabetes Mellitus, Type 2. 6. Hyperlipidemia. 7. Chronic Anemia secondary to chronic illness. 8. Major Depression. 9. Post Traumatic Stress Disorder. PLAN 1. Admit to the hospital as an Inpatient. 2. Monitor blood pressure and blood sugar status. 3. Intravenous antibiotics. 4. Consultation to Gynecology. 5. Consultation to Infectious Disease. 6. Follow up laboratory assessment. 7. DVT and PE prophylaxis. Timothy Gallo MD Dec 29, 2016 09:54
[2016-12-29 09:57] LABS: SCAN/DIFF AUTO DIFF CONFIRMED
[2016-12-29] MEDS ORDERED: hydrOXYzine HCL 50 MG TAB PO PRN (11:30)
[2016-12-29 12:00] VITALS: BP 137/84; PULSE 78; RESP 18; TEMP 98; O2SAT 99
[2016-12-29] MEDS: LISDEXAMFETAMINE DIMESYLATE 50 MG CAP PO SCH (12:02)
[2016-12-29] MEDS: buPROPion HCL 100 MG SUSTAINED RELEASE TAB PO PRN (12:02)
[2016-12-29] MEDS: PANTOPRAZOLE SOD 40 MG DELAYED RELEASE TAB PO SCH (12:02)
[2016-12-29] MEDS: SODIUM CHLOR 0.45% 1000 ML INJ 1,000 ML IV SCH (12:02)
[2016-12-29 16:00] VITALS: BP 144/90; PULSE 80; RESP 18; TEMP 99; O2SAT 99
--- NOTE | 2016-12-29 19:17 | MB ---
cc: MILES NORIEGA M.D. DATE OF CONSULTATION 12/29/16 HISTORY OF PRESENT ILLNESS The patient belongs to my partner, Dr. Strong's, practice and we were consulted due to recurrent hydradenitis suppurativa and a possible vulva cellulitis. The patient is a 41-year-old black female G0 last menstrual period December 21. She is not sexually active. She came to the emergency room last evening due to increasing pain associated with her hidradenitis suppurativa in her bilateral groin, her left vulva, bilateral axillae and bilaterally under her breasts. She reports that for the past week the boils had started to increase in size and pain and tenderness and then started draining. She felt like she had a fever at home but never took her temperature and she had chills. She has a long history of this disease and is followed by Dr. Erwin, the water registrar, and has had several different surgeries for the problems. PAST MEDICAL HISTORY/PAST SURGICAL HISTORY Well-documented in the chart. PHYSICAL EXAMINATION GENERAL: She is resting in bed. CHEST: Clear to auscultation bilaterally. CARDIAC: Regular rate and rhythm without murmur, rub or gallop. ABDOMEN: Soft, nontender, nondistended. No hepatosplenomegaly SKIN: that under each breast she has small open boil like lesions. The arm pits are without any erupted lesions. the bilateral groin has several different sizes and stages of boils, some open. The left vulva has a boil about 2 cm in size that does not appear to be draining at this time. It is tender. LABORATORY DATA Laboratory values on the patient include white count of 5. She has been afebrile since she has been in the hospital. Electrolytes are within normal limits. Gram stain just came back revealing gram positive cocci in pairs. The culture is still pending. She started vancomycin in the emergency room. ASSESSMENT AND PLAN Recurrent hidradenitis suppurativa with a left vulva abscess. My recommendations are to continue antibiotic therapy. We will let is the one that they feel most appropriate. I recommended doing some oral pain medicine as well as the IV morphine. If we need to, we will do an incision and drainage of vulva, but I feel that more antibiotics in her system are necessary before we do that. Thank you for this consultation. We will follow. MD KARMEN Dhillon/ /5:46 PM /7:01 PM
[2016-12-29] MEDS: diphenhydrAMINE HCL 50 MG CAP PO PRN (20:44)
[2016-12-29] MEDS: ENOXAPARIN SODIUM 40 MG/0.4 ML SYRINGE SQ SCH (20:45)
[2016-12-29 20:57] VITALS: BP 154/99; PULSE 83; RESP 18; TEMP 99.6; O2SAT 96
[2016-12-29] MEDS: ACETAMINOPHEN/HYDROcodone 325 MG/5 MG TAB PO PRN (21:01)
[2016-12-29] MEDS ORDERED: VANCOMYCIN 1,000 MG/NS 250 ML IV ONE ×2 (23:00)
[2016-12-30 00:35] VITALS: BP 118/67; PULSE 81; RESP 18; TEMP 97; O2SAT 97
[2016-12-30 05:03] VITALS: BP 129/83; PULSE 73; RESP 20; TEMP 97.4; O2SAT 95
[2016-12-30 08:00] VITALS: BP 126/78; PULSE 84; RESP 16; TEMP 97.9; O2SAT 99
[2016-12-30] MEDS: FLUTICASONE PROPIONATE 50 MCG/ACT 16 GM NASAL SPRAY EACH NARE SCH ×2 (09:00→13:09)
[2016-12-30] MEDS: SODIUM CHLORIDE 0.9% FLUSH 5 ML FLUSH FLUSH SCH ×2 (09:55→21:36)
[2016-12-30] MEDS: metFORMIN HCL 500 MG TAB PO SCH (09:56)
[2016-12-30] MEDS: LISDEXAMFETAMINE DIMESYLATE 50 MG CAP PO SCH (09:56)
[2016-12-30] MEDS: LISINOPRIL 20 MG TAB PO SCH ×2 (09:56→21:36)
[2016-12-30] MEDS: PANTOPRAZOLE SOD 40 MG DELAYED RELEASE TAB PO SCH (09:56)
[2016-12-30] MEDS: DOXAZOSIN MESYLATE 4 MG TAB PO SCH ×2 (09:56→21:36)
[2016-12-30] MEDS: FLUoxetine HCL 20 MG CAP PO SCH (09:56)
[2016-12-30 12:00] VITALS: BP 146/94; PULSE 76; RESP 16; TEMP 98.8; O2SAT 100
--- NOTE | 2016-12-30 12:26 | PD.ID.CON ---
History of Present Illness Service ID Consult Requested By Dr Gallo Reason for Consult hydradenitis suppurativa Primary Care Physician Timothy Gallo MD Diagnoses: History of Present Illness This patient is a 41 year old female who has a history of not having her Humira medication for two weeks 12/20 funding issue She has hydradenitis suppurativa since age of 10, its been under controled on Humira, but now she has very painful frare up He has very tender lesions in vulva area, R groin and some smaller ones L butock , L breast and back of the head She states imprrovement with abx She has no fever Her clx is not coplete yet, so far growing different kinds of strep, including GBS Review of Systems Genitourinary: COMPLAINS OF: Abnormal vaginal bleeding Integumentary: COMPLAINS OF: Rash Except as stated in HPI: all other systems reviewed are Neg Past Family Social History Allergies: Coded Allergies: Hydromorphone (Verified Allergy, Severe, Itching, 12/28/16) Iodine (Verified Allergy, Severe, Hives, 12/28/16) NOT ALLERGIC TO BETADINE Ondansetron (Verified Allergy, Severe, Itching, 12/28/16) Tetracycline (Verified Allergy, Severe, Hives, 12/28/16) Past Medical History PTSD depression and anxiety HTN diabetes Past Surgical History 5 skin surgeries Active Ordered Medications Medications where reviewed in EMR Antibiotics Include: vancomycin CFTX Family History Non-Contributory. Social History No Tobacco. No ETOH. No Illicit Drugs. Physical Exam Vital Signs Vital Signs Date Time Temp Pulse Resp B/P Pulse Ox O2 Delivery O2 Flow Rate FiO2 12/30/16 08:00 97.9 84 16 126/78 99 12/30/16 05:03 97.4 73 20 129/83 95 12/30/16 00:35 97.0 81 18 118/67 97 12/29/16 20:57 99.6 83 18 154/99 96 12/29/16 20:02 21 12/29/16 16:00 99.0 80 18 144/90 99 Physical Exam CONSTITUTIONAL/GENERAL: This is an adequately nourished patient, in no apparent distress. TUBES/LINES/DRAINS: SKIN: Multiple tender lesions in the form of tender subcutaneous lesions: back of the neck, under L breast, R groin, vulva area , buttocks Some are draining and fluctuant, others are hard. Vulva area lesions are the worst with some surrounding cellulitis, Also mild cellulitis R groin area . Skin temperature appropriate. Not diaphoretic. HEAD: Atraumatic. Normocephalic. EYES: Pupils equal and round and reactive. Extraocular motions intact. No scleral icterus. No injection or drainage. Fundi not examined. ENT: Hearing grossly normal. Nose without bleeding or purulent drainage. Throat without visible erythema, exudates, masses, or lesions. NECK: Trachea midline. Supple, nontender. CARDIOVASCULAR: Regular rate and rhythm without murmurs, gallops, or rubs. No JVD. Peripheral pulses symmetric. RESPIRATORY/CHEST: Symmetric, unlabored respirations. Clear to auscultation. Breath sounds equal bilaterally. No wheezes, rales, or rhonchi. GASTROINTESTINAL: Abdomen soft, non-tender, nondistended. No hepato-splenomegaly , or palpable masses. No guarding. Bowel sounds present. GENITOURINARY: Without palpable bladder distension. MUSCULOSKELETAL: Extremities without clubbing, cyanosis, or edema. No joint tenderness or effusion noted. No calf tenderness. No mottling or clubbing. LYMPHATICS: No palpable cervical or supraclavicular adenopathy. NEUROLOGICAL: Awake and alert. Motor and sensory grossly within normal limits. Follows commands. Cognitively sharp. Moves all extremities. PSYCHIATRIC: No obvious anxiety/depression. no apparent hallucinations or other psychotic thought process. Laboratory Date/Time Procedure Status Source Growth 12/28/16 17:20 Gram Stain - Final Resulted Wound Abdomen 12/28/16 17:20 Wound Culture - Preliminary Resulted Group B Beta Strep Strep Not A,B D 12/28/16 16:40 Aerobic Blood Culture - Preliminary Resulted Blood Peripheral NO GROWTH IN 2 DAYS 12/28/16 16:40 Anaerobic Blood Culture - Preliminary Resulted Blood Peripheral NO GROWTH IN 2 DAYS Result Diagram: 12/29/16 0516 12/29/16 0516 Imaging Last Impressions Abdomen/Pelvis CT 12/28/16 0000 Signed Impressions: Service Date/Time: Wednesday, December 28, 2016 17:38 - CONCLUSION: 1. Abnormal stranding of fat in the mons pubis and extending inferiorly into the vulvar region most characteristic of a cellulitis. There is focal skin thickening predominantly in the right inferior mons pubis that could represent small cutaneous abscess. Borderline enlarged lymph nodes in the medial inguinal region. 2. Fibroid uterus measuring up to 13.7 x 9.8 cm. Jordi Greenfield MD Assessment and Plan Assessment and Plan Hydradenitis suppurative flare up after pt stop taking Humira Ascess related to HS lesion neck, under L breast, R groin, vulva area , buttocks Cellulitis DM - dc vacomycin - start zosyn - further rec's per final clx - anticipate transition to oral abx soon - monitor active lesions for the need of I+D Trinity Moody MD Dec 30, 2016 12:26
[2016-12-30] MEDS: ACETAMINOPHEN/HYDROcodone 325 MG/5 MG TAB PO PRN (13:10)
[2016-12-30 13:35] LABS: BICARBONATE 26.4 MEQ/L (21.0-32.0); MAGNESIUM 1.8 MG/DL (1.5-2.5)
[2016-12-30] MEDS: PIPERACIL-TAZO 3.375 GM PREMIX 50 ML IV SCH ×2 (14:46→21:36)
--- NOTE | 2016-12-30 14:48 | HHI.PR ---
Subjective Remarks She appears more comfortable today. She was seen by Infectious Disease with the note appreciated. She appears to be tolerating the regimen of treatment well. Objective Vital Signs Date Time Temp Pulse Resp B/P Pulse Ox O2 Delivery O2 Flow Rate FiO2 12/30/16 12:00 98.8 76 16 146/94 100 12/30/16 08:00 97.9 84 16 126/78 99 12/30/16 05:03 97.4 73 20 129/83 95 12/30/16 00:35 97.0 81 18 118/67 97 12/29/16 20:57 99.6 83 18 154/99 96 12/29/16 20:02 21 12/29/16 16:00 99.0 80 18 144/90 99 I/O 12/29/16 12/29/16 12/29/16 12/30/16 12/30/16 12/30/16 07:00 15:00 23:00 07:00 15:00 23:00 Intake Total 300 ml 960 ml 773 ml 1096 ml Balance 300 ml 960 ml 773 ml 1096 ml Intake Oral 300 ml 960 ml IV Total 773 ml 1096 ml # Voids 2 2 2 # Bowel Movements 0 Result Diagram: 12/29/16 0516 12/30/16 1245 Objective Remarks GENERAL: Alert and in moderate distress for discomfort of the skin lesions. SKIN: Warm and dry with multiple areas of ulcerated skin lesions. HEAD: Normocephalic. Atraumatic. EYES: No scleral icterus. No injection or drainage. NOSE: The nasal passages show congestive changes bilaterally. NECK: Supple, trachea midline. No JVD or lymphadenopathy. CARDIOVASCULAR: Regular rate and rhythm without murmurs, gallops, or rubs. RESPIRATORY: Breath sounds equal bilaterally. No accessory muscle use. GASTROINTESTINAL: Abdomen soft, non-tender, nondistended. MUSCULOSKELETAL: No cyanosis, or edema. Free range of motion for the limbs. Pulses are at 3+/4+. BACK: Nontender without obvious deformity. No CVA tenderness. NEUROLOGICAL: No lateralizing or focal motor deficits to exam. Assessment and Plan Assessment and Plan ASSESSMENT 1. Suppurative Hydradenitis. 2. Severe Cellulitis. 3. Hypokalemia. 4. Hypertension. 5. Diabetes Mellitus, Type 2. 6. Hyperlipidemia. 7. Chronic Anemia secondary to chronic illness. 8. Major Depression. 9. Post Traumatic Stress Disorder. 10. Allergic Rhinitis. PLAN 1. Continue with current intravenous antibiotics. 2. Continue with Infectious Disease follow up. 3. Continue with Gynecology follow up. 4. Follow up laboratory assessment. 5. DVT and PE prophylaxis. Timothy Gallo MD Dec 30, 2016 14:48
[2016-12-30] MEDS ORDERED: DEXAMETHASONE SOD PHOS 4 MG/ML VIAL IV PUSH ONE (15:00)
[2016-12-30] MEDS ORDERED: SODIUM CHLORIDE 0.65% NASAL SPRAY 45 ML BTL EACH NARE ONE (15:00)
[2016-12-30 15:45] LABS: TRANSFERRIN IRON PROFILE 261 MG/DL (200-360)
[2016-12-30 15:48] LABS: FERRITIN 12 NG/ML (8-252)
[2016-12-30 16:00] VITALS: BP 143/89; PULSE 89; RESP 16; TEMP 98.8; O2SAT 99
[2016-12-30] MEDS: MORPHINE SULFATE 4 MG/ML INJ IV PUSH PRN ×2 (16:15→21:44)
[2016-12-30 17:22] LABS: AUTOMATED NEUTROPHIL # 3.2 TH/MM3 (1.8-7.7); BASOPHIL % 0.6 % (0.0-2.0); EOSINOPHIL # 0.2 TH/MM3 (0-0.4); HEMATOCRIT 30.3 % (35.0-46.0); LYMPH % 33.3 % (9.0-44.0); MEAN CELL VOLUME 75.2 FL (80.0-100.0); MEAN CORPUSCULAR HEMOGLOBIN 24.5 PG (27.0-34.0); MEAN CORPUSCULAR HGB CONC 32.6 % (32.0-36.0); MONO % 8.3 % (0.0-8.0); NEUT % 53.8 % (16.0-70.0); PLATELET COUNT 261 TH/MM3 (150-450); RED BLOOD COUNT 4.03 MIL/MM3 (4.00-5.30); WHITE BLOOD COUNT 5.9 TH/MM3 (4.0-11.0)
[2016-12-30 17:24] LABS: HEMO FLAGS AUTO DIFF
[2016-12-30 18:09] LABS: PLATELET ESTIMATE SMEAR NORMAL (NORMAL); PLATELET MORPHOLOGY NORMAL (NORMAL); SCAN/DIFF AUTO DIFF CONFIRMED
[2016-12-30 20:00] VITALS: BP 146/98; PULSE 79; RESP 18; TEMP 98.8; O2SAT 99
[2016-12-30] MEDS: diphenhydrAMINE HCL 50 MG CAP PO PRN (21:36)
[2016-12-30] MEDS: ENOXAPARIN SODIUM 40 MG/0.4 ML SYRINGE SQ SCH (21:36)
[2016-12-30] MEDS ORDERED: VANCOMYCIN INJ 1,000 MG in SODIUM CHLOR 0.9% 250 ML INJ 250 ML IV SCH (23:00)
[2016-12-31] VITALS (8 sets, daily range): BP systolic 143–160; BP diastolic 83–95; PULSE 65–80; RESP 17–20; TEMP 97.7–98.9; O2SAT 96–100
[2016-12-31] MEDS: PIPERACIL-TAZO 3.375 GM PREMIX 50 ML IV SCH ×4 (02:33→20:56)
[2016-12-31] MEDS: FLUTICASONE PROPIONATE 50 MCG/ACT 16 GM NASAL SPRAY EACH NARE SCH (09:16)
[2016-12-31] MEDS: SODIUM CHLORIDE 0.9% FLUSH 5 ML FLUSH FLUSH SCH ×2 (09:17→20:57)
[2016-12-31] MEDS: LISINOPRIL 20 MG TAB PO SCH ×2 (09:17→20:56)
[2016-12-31] MEDS: metFORMIN HCL 500 MG TAB PO SCH (09:17)
[2016-12-31] MEDS: LISDEXAMFETAMINE DIMESYLATE 50 MG CAP PO SCH (09:17)
[2016-12-31] MEDS: FLUoxetine HCL 20 MG CAP PO SCH (09:17)
[2016-12-31] MEDS: PANTOPRAZOLE SOD 40 MG DELAYED RELEASE TAB PO SCH (09:18)
[2016-12-31] MEDS: DOXAZOSIN MESYLATE 4 MG TAB PO SCH ×2 (09:18→20:56)
[2016-12-31] MEDS: ACETAMINOPHEN/HYDROcodone 325 MG/5 MG TAB PO PRN (09:18)
--- NOTE | 2016-12-31 12:18 | HHI.PR ---
Subjective Remarks pt still with pain similar to admission, denies fever, chill, abscesses still draining Objective Vital Signs Date Time Temp Pulse Resp B/P Pulse Ox O2 Delivery O2 Flow Rate FiO2 12/31/16 04:00 97.7 65 18 143/85 96 12/31/16 00:00 98.1 78 19 143/83 97 12/30/16 20:00 98.8 79 18 146/98 99 12/30/16 16:00 98.8 89 16 143/89 99 I/O 12/30/16 12/30/16 12/30/16 12/31/16 12/31/16 12/31/16 07:00 15:00 23:00 07:00 15:00 23:00 Intake Total 1096 ml 480 ml 480 ml 100 ml Balance 1096 ml 480 ml 480 ml 100 ml Intake Oral 480 ml 480 ml IV Total 1096 ml 100 ml # Voids 2 4 2 # Bowel Movements 1 0 Result Diagram: 12/30/16 1709 12/30/16 1245 Objective Remarks GENERAL: Well-nourished, well-developed patient. CARDIOVASCULAR: Regular rate and rhythm without murmurs, gallops, or rubs. RESPIRATORY: Breath sounds equal bilaterally. No accessory muscle use. ABDOMEN/GI: Abdomen soft, non-tender. Groin: still draining GENITOURINARY: left vulva still with swelling and induration, not fluctuant for I & D EXTREMITIES: No cyanosis or edema, non-tender, without signs of DVT. Assessment and Plan Assessment and Plan left vulvar abscess/hidradenitis cont ABX encouraged wen-bottle use, shower and gauze to incisions will consider I & D tomorrow if fluctuant consider consult gen surgery for I&D of axilla and groin Yulia Strong MD Dec 31, 2016 12:18
[2016-12-31] MEDS: oxyCODONE/ACETAMINOPHEN 10 MG/325 MG TAB PO PRN (17:22)
[2016-12-31] MEDS: ENOXAPARIN SODIUM 40 MG/0.4 ML SYRINGE SQ SCH (20:56)
[2016-12-31] MEDS: diphenhydrAMINE HCL 50 MG CAP PO PRN (20:57)
[2017-01-01] VITALS: BP 149/84; PULSE 76; RESP 17; TEMP 96.4; O2SAT 100
[2017-01-01] MEDS: PIPERACIL-TAZO 3.375 GM PREMIX 50 ML IV SCH ×4 (02:27→20:36)
[2017-01-01 04:00] VITALS: BP 117/69; PULSE 74; RESP 18; TEMP 98.3; O2SAT 96
--- NOTE | 2017-01-01 07:40 | HHI.PR ---
Subjective Remarks She is lying in bed at this time and reports discomfort in the pubic and genital areas. She was seen by Infectious Disease and by Analytical Data Miner consults with the notes appreciated. I discussed the plan with the Bale Sewer on yesterday. The patient appears to be tolerating the regimen of treatment well. Objective Vital Signs Date Time Temp Pulse Resp B/P Pulse Ox O2 Delivery O2 Flow Rate FiO2 01/01/17 04:00 98.3 74 18 117/69 96 01/01/17 00:00 96.4 76 17 149/84 100 12/31/16 20:00 98.4 79 17 158/95 100 12/31/16 16:00 98.9 80 151/95 100 12/31/16 15:26 156/85 12/31/16 12:45 98.5 76 20 160/94 99 12/31/16 12:15 98.2 12/31/16 09:00 98.5 75 18 147/94 100 I/O 12/31/16 12/31/16 12/31/16 01/01/17 01/01/17 01/01/17 07:00 15:00 23:00 07:00 15:00 23:00 Intake Total 100 ml 795 ml 240 ml Balance 100 ml 795 ml 240 ml Intake Oral 720 ml 240 ml IV Total 100 ml 75 ml # Voids 4 2 Result Diagram: 12/30/16 1709 12/30/16 1245 Objective Remarks GENERAL: Alert and in mild distress for discomfort of the skin lesions. SKIN: Warm and dry with persistent areas of ulcerated skin lesions. HEAD: Normocephalic. Atraumatic. EYES: No scleral icterus. No injection or drainage. NOSE: The nasal passages show congestive changes bilaterally. NECK: Supple, trachea midline. No JVD or lymphadenopathy. CARDIOVASCULAR: Regular rate and rhythm without murmurs, gallops, or rubs. RESPIRATORY: Breath sounds equal bilaterally. No accessory muscle use. GASTROINTESTINAL: Abdomen soft, non-tender, nondistended. MUSCULOSKELETAL: No cyanosis, or edema. Free range of motion for the limbs. Pulses are at 3+/4+. BACK: Nontender without obvious deformity. No CVA tenderness. NEUROLOGICAL: No lateralizing or focal motor deficits to exam. Assessment and Plan Assessment and Plan ASSESSMENT 1. Suppurative Hydradenitis. 2. Severe Cellulitis. 3. Hypokalemia. 4. Hypertension. 5. Diabetes Mellitus, Type 2. 6. Hyperlipidemia. 7. Chronic Anemia secondary to chronic illness. 8. Major Depression. 9. Post Traumatic Stress Disorder. 10. Allergic Rhinitis. PLAN 1. Continue with current intravenous antibiotics. 2. Continue with Infectious Disease follow up. 3. Continue with Gynecology follow up. 4. Follow up laboratory assessment to be done. 5. DVT and PE prophylaxis. Timothy Gallo MD Jan 01, 2017 07:40
[2017-01-01] MEDS ORDERED: VYVANSE 50 MG PO SCH (09:00)
[2017-01-01 09:30] VITALS: BP 143/67; PULSE 70; RESP 18; TEMP 98.4; O2SAT 100
[2017-01-01] MEDS: metFORMIN HCL 500 MG TAB PO SCH (09:44)
[2017-01-01] MEDS: FLUTICASONE PROPIONATE 50 MCG/ACT 16 GM NASAL SPRAY EACH NARE SCH (09:44)
[2017-01-01] MEDS: PANTOPRAZOLE SOD 40 MG DELAYED RELEASE TAB PO SCH (09:44)
[2017-01-01] MEDS: DOXAZOSIN MESYLATE 4 MG TAB PO SCH ×2 (09:44→20:36)
[2017-01-01] MEDS: LISINOPRIL 20 MG TAB PO SCH ×2 (09:44→20:36)
[2017-01-01] MEDS: FLUoxetine HCL 20 MG CAP PO SCH (09:44)
[2017-01-01] MEDS: SODIUM CHLORIDE 0.9% FLUSH 5 ML FLUSH FLUSH SCH ×2 (09:45→20:36)
[2017-01-01] MEDS: oxyCODONE/ACETAMINOPHEN 10 MG/325 MG TAB PO PRN ×2 (09:54→17:59)
[2017-01-01 12:00] VITALS: BP 142/91; PULSE 76; RESP 18; TEMP 98.2; O2SAT 100
[2017-01-01] MEDS: buPROPion HCL 100 MG SUSTAINED RELEASE TAB PO PRN (13:36)
[2017-01-01] MEDS: LORazepam 0.5 MG TAB PO PRN (13:36)
[2017-01-01] MEDS ORDERED: LIDOCAINE HCL 1% 50 ML VIAL ONE (13:54)
--- NOTE | 2017-01-01 18:28 | HHI.PR ---
Subjective Remarks pt still with pain tolerating po meds, denies fever, chill, abscesses still present. states she has a new one at back of head Objective Vital Signs Date Time Temp Pulse Resp B/P Pulse Ox O2 Delivery O2 Flow Rate FiO2 01/01/17 12:00 98.2 76 18 142/91 100 01/01/17 09:30 98.4 70 18 143/67 100 01/01/17 04:00 98.3 74 18 117/69 96 01/01/17 00:00 96.4 76 17 149/84 100 12/31/16 20:00 98.4 79 17 158/95 100 I/O 12/31/16 12/31/16 12/31/16 01/01/17 01/01/17 01/01/17 07:00 15:00 23:00 07:00 15:00 23:00 Intake Total 100 ml 795 ml 240 ml 220 ml Balance 100 ml 795 ml 240 ml 220 ml Intake Oral 720 ml 240 ml IV Total 100 ml 75 ml 220 ml # Voids 4 2 Result Diagram: 12/30/16 1709 12/30/16 1245 Objective Remarks GENERAL: Well-nourished, well-developed patient. CARDIOVASCULAR: Regular rate and rhythm without murmurs, gallops, or rubs. RESPIRATORY: Breath sounds equal bilaterally. No accessory muscle use. ABDOMEN/GI: Abdomen soft, non-tender. Groin: still draining GENITOURINARY: left vulva still with swelling and induration, fluctuant for I & D Area cleaned with betaiodine, numbed using 1% lidocaine, incised using 10 blade , culture collected. serosanguinous fluid evacuated. gauze placed. EXTREMITIES: No cyanosis or edema, non-tender, without signs of DVT. Assessment and Plan Assessment and Plan left vulvar abscess/hidradenitis cont ABX encouraged wen-bottle use, shower and gauze to incisions s/p I & D, cont dressing changes check wound culture will order nasal swabs to see if clear of MRSA Yulia Strong MD Jan 01, 2017 18:28
[2017-01-01 20:00] VITALS: BP 132/74; PULSE 84; RESP 18; TEMP 97.8; O2SAT 99
[2017-01-01] MEDS: ENOXAPARIN SODIUM 40 MG/0.4 ML SYRINGE SQ SCH (20:36)
[2017-01-01] MEDS: diphenhydrAMINE HCL 50 MG CAP PO PRN (20:43)
[2017-01-02] VITALS: BP 115/78; PULSE 80; RESP 17; TEMP 97.5; O2SAT 99
[2017-01-02] MEDS: PIPERACIL-TAZO 3.375 GM PREMIX 50 ML IV SCH ×3 (02:22→12:51)
[2017-01-02] MEDS: oxyCODONE/ACETAMINOPHEN 10 MG/325 MG TAB PO PRN ×3 (02:22→22:04)
[2017-01-02 04:00] VITALS: BP 120/74; PULSE 72; RESP 17; TEMP 97; O2SAT 100
[2017-01-02 04:17] LABS: MRSA PCR NEGATIVE (NEGATIVE); STAPH AUREUS PCR NEGATIVE (NEGATIVE)
--- NOTE | 2017-01-02 07:45 | HHI.PR ---
Subjective Remarks She had incision and drainage done by Gynecology on yesterday. She appears to have tolerated the procedure well. She states that she is trying to keep up with good hydration and nutrition. Objective Vital Signs Date Time Temp Pulse Resp B/P Pulse Ox O2 Delivery O2 Flow Rate FiO2 01/02/17 04:00 97.0 72 17 120/74 100 01/02/17 00:00 97.5 80 17 115/78 99 01/01/17 20:00 97.8 84 18 132/74 99 01/01/17 12:00 98.2 76 18 142/91 100 01/01/17 09:30 98.4 70 18 143/67 100 I/O 01/01/17 01/01/17 01/01/17 01/02/17 01/02/17 01/02/17 07:00 15:00 23:00 07:00 15:00 23:00 Intake Total 240 ml 220 ml 840 ml Balance 240 ml 220 ml 840 ml Intake Oral 240 ml 840 ml IV Total 220 ml # Voids 2 4 Result Diagram: 12/30/16 1709 12/30/16 1245 Objective Remarks GENERAL: Alert and in mild distress for discomfort of the skin lesions. SKIN: Warm and dry, except for the areas of ulcerated skin lesions. HEAD: Normocephalic. Atraumatic. EYES: No scleral icterus. No injection or drainage. NOSE: The nasal passages show congestive changes bilaterally. NECK: Supple, trachea midline. No JVD or lymphadenopathy. CARDIOVASCULAR: Regular rate and rhythm without murmurs, gallops, or rubs. RESPIRATORY: Breath sounds equal bilaterally. No accessory muscle use. GASTROINTESTINAL: Abdomen soft, non-tender, nondistended. MUSCULOSKELETAL: No cyanosis, or edema. Free range of motion for the limbs. Pulses are at 3+/4+. BACK: Nontender without obvious deformity. No CVA tenderness. NEUROLOGICAL: No lateralizing or focal motor deficits to exam. Assessment and Plan Assessment and Plan ASSESSMENT 1. Suppurative Hydradenitis. 2. Severe Cellulitis. 3. Hypokalemia. 4. Hypertension. 5. Diabetes Mellitus, Type 2. 6. Hyperlipidemia. 7. Chronic Anemia secondary to chronic illness. 8. Major Depression. 9. Post Traumatic Stress Disorder. 10. Allergic Rhinitis. PLAN 1. Continue with current intravenous antibiotics. 2. Infectious Disease and Gynecology follow. 3. Pain control as needed. 4. Follow up laboratory assessment as needed. 5. DVT and PE prophylaxis. Timothy Gallo MD Jan 02, 2017 07:45
[2017-01-02 08:00] VITALS: BP 130/89; PULSE 78; RESP 20; TEMP 97.8; O2SAT 100
[2017-01-02] MEDS: FERROUS SULFATE 325 MG (65 MG ELEMENTAL IRON) TAB PO SCH (09:07)
[2017-01-02] MEDS: metFORMIN HCL 500 MG TAB PO SCH (09:07)
[2017-01-02] MEDS: LISINOPRIL 20 MG TAB PO SCH ×2 (09:07→21:52)
[2017-01-02] MEDS: FLUoxetine HCL 20 MG CAP PO SCH (09:07)
[2017-01-02] MEDS: DOXAZOSIN MESYLATE 4 MG TAB PO SCH ×2 (09:07→21:52)
[2017-01-02] MEDS: PANTOPRAZOLE SOD 40 MG DELAYED RELEASE TAB PO SCH (09:07)
[2017-01-02] MEDS: buPROPion HCL 100 MG SUSTAINED RELEASE TAB PO PRN (09:08)
[2017-01-02] MEDS: FLUTICASONE PROPIONATE 50 MCG/ACT 16 GM NASAL SPRAY EACH NARE SCH (09:10)
[2017-01-02] MEDS: SODIUM CHLORIDE 0.9% FLUSH 5 ML FLUSH FLUSH SCH ×2 (09:11→21:52)
[2017-01-02 09:48] LABS: AUTOMATED NEUTROPHIL # 4.1 TH/MM3 (1.8-7.7); BASOPHIL % 0.5 % (0.0-2.0); EOSINOPHIL # 0.3 TH/MM3 (0-0.4); HEMATOCRIT 33.4 % (35.0-46.0); LYMPH % 29.1 % (9.0-44.0); MEAN CELL VOLUME 76.4 FL (80.0-100.0); MEAN CORPUSCULAR HEMOGLOBIN 24.2 PG (27.0-34.0); MEAN CORPUSCULAR HGB CONC 31.6 % (32.0-36.0); MONO % 5.2 % (0.0-8.0); NEUT % 60.2 % (16.0-70.0); PLATELET COUNT 261 TH/MM3 (150-450); RED BLOOD COUNT 4.37 MIL/MM3 (4.00-5.30); RED CELL DISTRIBUTION WIDTH 17.3 % (11.6-17.2); WHITE BLOOD COUNT 6.8 TH/MM3 (4.0-11.0)
[2017-01-02 09:58] LABS: HEMO FLAGS AUTO DIFF
[2017-01-02 10:32] LABS: BICARBONATE 26.6 MEQ/L (21.0-32.0); POTASSIUM 3.5 MEQ/L (3.5-5.1)
[2017-01-02 11:32] LABS: PLATELET ESTIMATE SMEAR NORMAL (NORMAL); PLATELET MORPHOLOGY NORMAL (NORMAL); SCAN/DIFF AUTO DIFF CONFIRMED
[2017-01-02 12:00] VITALS: BP 143/78; PULSE 82; RESP 20; TEMP 98; O2SAT 100
--- NOTE | 2017-01-02 12:32 | HHI.PR ---
Subjective Remarks pt states pain improved with po meds. c/o itching. denies fever, chill, abscesses still present. Objective Vital Signs Date Time Temp Pulse Resp B/P Pulse Ox O2 Delivery O2 Flow Rate FiO2 01/02/17 08:00 97.8 78 20 130/89 100 01/02/17 04:00 97.0 72 17 120/74 100 01/02/17 00:00 97.5 80 17 115/78 99 01/01/17 20:00 97.8 84 18 132/74 99 I/O 01/01/17 01/01/17 01/01/17 01/02/17 01/02/17 01/02/17 07:00 15:00 23:00 07:00 15:00 23:00 Intake Total 240 ml 220 ml 840 ml Balance 240 ml 220 ml 840 ml Intake Oral 240 ml 840 ml IV Total 220 ml # Voids 2 4 Result Diagram: 01/02/1792501/02/17925 Objective Remarks GENERAL: Well-nourished, well-developed patient. CARDIOVASCULAR: Regular rate and rhythm without murmurs, gallops, or rubs. RESPIRATORY: Breath sounds equal bilaterally. No accessory muscle use. ABDOMEN/GI: Abdomen soft, non-tender. Groin: still draining GENITOURINARY: left vulva still with swelling and induration, s/p I & D, small amount of sterile packing placed without difficulty EXTREMITIES: No cyanosis or edema, non-tender, without signs of DVT. Medications and IVs Current Medications Medications (Trade) Dose Ordered Sig/Raoul Route Start Time Stop Time Status Last Admin (NS Flush) 2 ml UNSCH PRN FLUSH 12/28/16 20:00 (NS Flush) 2 ml BID FLUSH 12/28/16 21:00 01/02/17 09:11 (Tylenol) 650 mg Q4H PRN PO 12/28/16 20:00 (Lovenox Inj) 40 mg Q24H SQ 12/28/16 21:00 01/01/17 20:36 (Narcan Inj) 0.4 mg UNSCH PRN IV 12/28/16 20:00 (Wellbutrin Sr 12 Hr) 200 mg Q12HR PRN PO 12/28/16 20:00 01/02/17 09:08 (Cardura) 8 mg BID PO 12/28/16 21:00 01/02/17 09:07 (PROzac) 60 mg DAILY PO 12/29/16 09:00 01/02/17 09:07 (Flonase Jonn Spr) 2 spray DAILY EACH NARE 12/29/16 09:00 01/02/17 09:10 (Prinivil) 20 mg BID PO 12/28/16 21:00 01/02/17 09:07 (Ativan) 0.5 mg DAILY PRN PO 12/28/16 20:00 01/01/17 13:36 (Glucophage) 500 mg DAILY PO 12/29/16 09:00 01/02/17 09:07 (D50w (Vial) Inj) 25 ml UNSCH PRN IV PUSH 12/28/16 20:00 (Glucagon Inj) 1 mg UNSCH PRN OTHER 12/28/16 20:00 (Morphine Inj) 4 mg Q4H PRN IV PUSH 12/28/16 23:15 12/30/16 21:44 (Atarax) 50 mg Q6H PRN PO 12/29/16 11:30 (Benadryl) 50 mg Q6H PRN PO 12/29/16 09:30 01/01/17 20:43 Pantoprazole Sodium 40 mg 40 mg DAILY PO 12/29/16 11:00 01/02/17 09:07 (Zosyn 3.375 Gm Premix) 50 ml @ 100 mls/hr Q6H IV 12/30/16 14:00 01/02/17 09:10 Patient Own Medication PT OWN MED: VYVANSE... DAILY PO 01/01/17 09:00 Hold (Percocet 10-325 Mg) 1 tab Q4H PRN PO 01/01/17 15:45 01/02/17 09:08 (Ferrous Sulfate) 325 mg DAILY PO 01/02/17 09:00 01/02/17 09:07 Active Medications Ferrous Sulfate (Ferrous Sulfate) 325 mg DAILY PO Last administered on t 09:07; Admin Dose 325 MG; Start 01/02/17 at 09:00 Lidocaine HCl (Xylocaine 1% Inj (50 ml)) 50 ml STK-MED ONCE .ROUTE; Start at 13:54; Stop 01/01/17 at 13:55; Status DC Oxycodone/ Acetaminophen (Percocet 10-325 Mg) 1 tab Q4H PRN PO Last administered on 01/02/17t 09:08; Admin Dose 1 TAB; Start 01/01/17 at 15:45 Assessment and Plan Assessment and Plan left vulvar abscess/hidradenitis/s/p I&D cont ABX encouraged wen-bottle use, shower and gauze to incisions s/p I & D, cont dressing changes check wound culture will order nasal swabs to see if clear of MRSA consider changing to PO ABX likely able to be d/c'd on 01/03 Yulia Strong MD Jan 02, 2017 12:32
[2017-01-02] MEDS: diphenhydrAMINE HCL 50 MG CAP PO PRN (12:51)
[2017-01-02 14:13] VITALS: BP 154/95; PULSE 85; RESP 18; TEMP 96.6; O2SAT 100
--- NOTE | 2017-01-02 16:07 | HHI.IDPN ---
Subjective Subjective Remarks co painful occipital lesion overall better no fever Antibiotics zosyn Allergies: Coded Allergies: Hydromorphone (Verified Allergy, Severe, Itching, 12/28/16) Iodine (Verified Allergy, Severe, Hives, 12/28/16) NOT ALLERGIC TO BETADINE Ondansetron (Verified Allergy, Severe, Itching, 12/28/16) Tetracycline (Verified Allergy, Severe, Hives, 12/28/16) Objective . Vital Signs Date Time Temp Pulse Resp B/P Pulse Ox O2 Delivery O2 Flow Rate FiO2 01/02/17 12:00 98.0 82 20 143/78 100 01/02/17 08:00 97.8 78 20 130/89 100 01/02/17 04:00 97.0 72 17 120/74 100 01/02/17 00:00 97.5 80 17 115/78 99 01/01/17 20:00 97.8 84 18 132/74 99 01/01/17 01/01/17 01/02/17 15:00 23:00 07:00 Intake Total 220 ml 840 ml Balance 220 ml 840 ml Intake Oral 840 ml IV Total 220 ml # Voids 4 . Laboratory Tests Test 01/02/17 09:26 White Blood Count 6.8 TH/MM3 Red Blood Count 4.37 MIL/MM3 Hemoglobin 10.6 GM/DL Hematocrit 33.4 % Mean Corpuscular Volume 76.4 FL Mean Corpuscular Hemoglobin 24.2 PG Mean Corpuscular Hemoglobin 31.6 % Concent Red Cell Distribution Width 17.3 % Platelet Count 261 TH/MM3 Mean Platelet Volume 8.3 FL Neutrophils (%) (Auto) 60.2 % Lymphocytes (%) (Auto) 29.1 % Monocytes (%) (Auto) 5.2 % Eosinophils (%) (Auto) 5.0 % Basophils (%) (Auto) 0.5 % Neutrophils # (Auto) 4.1 TH/MM3 Lymphocytes # (Auto) 2.0 TH/MM3 Monocytes # (Auto) 0.4 TH/MM3 Eosinophils # (Auto) 0.3 TH/MM3 Basophils # (Auto) 0.0 TH/MM3 CBC Comment AUTO DIFF Differential Comment AUTO DIFF CONFIRMED Platelet Estimate NORMAL Platelet Morphology Comment NORMAL Laboratory Tests Test 01/02/17 09:26 Sodium Level 137 MEQ/L Potassium Level 3.5 MEQ/L Chloride Level 102 MEQ/L Carbon Dioxide Level 26.6 MEQ/L Anion Gap 8 MEQ/L Blood Urea Nitrogen 11 MG/DL Creatinine 1.04 MG/DL Estimat Glomerular Filtration 71 ML/MIN Rate Random Glucose 106 MG/DL Calcium Level 8.4 MG/DL Magnesium Level 2.0 MG/DL Microbiology Date/Time Procedure Status Source Growth 01/01/17 14:20 Fungal Smear - Final Resulted Wound Groin NO FUNGAL ELEMENTS SEEN. 01/01/17 14:20 Fungal Culture Resulted Wound Groin Pending 01/01/17 14:20 Gram Stain - Final Resulted Wound Groin 01/01/17 14:20 Wound Culture Resulted Wound Groin Pending Imaging Last Impressions Abdomen/Pelvis CT 12/28/16 0000 Signed Impressions: Service Date/Time: Wednesday, December 28, 2016 17:38 - CONCLUSION: 1. Abnormal stranding of fat in the mons pubis and extending inferiorly into the vulvar region most characteristic of a cellulitis. There is focal skin thickening predominantly in the right inferior mons pubis that could represent small cutaneous abscess. Borderline enlarged lymph nodes in the medial inguinal region. 2. Fibroid uterus measuring up to 13.7 x 9.8 cm. Jordi Greenfield MD Physical Exam CONSTITUTIONAL/GENERAL: This is an adequately nourished patient, in no apparent distress. TUBES/LINES/DRAINS: SKIN: Multiple tender lesions in the form of tender subcutaneous lesions: under L breast, R groin, vulva area , R vulvar abscess is drained, packed with less prominent surrounding cellulitis, Also mild cellulitis R groin area - resolving Lesion on the back of the neck extremely tender, tense . Skin temperature appropriate. Not diaphoretic. Assessment & Plan Remarks Hydradenitis suppurative flare up after pt stop taking Humira Ascesses related to HS lesion, multiple - improving - strep and anaerobic GNB on vulvar abscess clx Cellulitis resolving DM - dc zosyn - start augmentin - gen sx for I+D the neck lesion Trinity Moody MD Jan 02, 2017 16:06
[2017-01-02 20:00] VITALS: BP 142/86; PULSE 81; RESP 18; TEMP 97.6; O2SAT 98
[2017-01-02] MEDS: AMOXICILLIN/CLAVULANATE K 875 MG TAB PO SCH (21:51)
[2017-01-02] MEDS: ENOXAPARIN SODIUM 40 MG/0.4 ML SYRINGE SQ SCH (21:52)
[2017-01-03] VITALS: BP 154/94; PULSE 81; RESP 18; TEMP 97.1; O2SAT 100
[2017-01-03] MEDS: oxyCODONE/ACETAMINOPHEN 10 MG/325 MG TAB PO PRN (02:48)
[2017-01-03 04:00] VITALS: BP 110/65; PULSE 78; RESP 18; TEMP 98; O2SAT 98
[2017-01-03 07:42] VITALS: BP 125/82; PULSE 77; RESP 17; TEMP 97.6; O2SAT 99
[2017-01-03] MEDS: metFORMIN HCL 500 MG TAB PO SCH (10:00)
[2017-01-03] MEDS: DOXAZOSIN MESYLATE 4 MG TAB PO SCH ×2 (10:00→21:36)
[2017-01-03] MEDS: SODIUM CHLORIDE 0.9% FLUSH 5 ML FLUSH FLUSH SCH ×2 (10:00→21:37)
[2017-01-03] MEDS: FLUoxetine HCL 20 MG CAP PO SCH (10:00)
[2017-01-03] MEDS: FERROUS SULFATE 325 MG (65 MG ELEMENTAL IRON) TAB PO SCH (10:00)
[2017-01-03] MEDS: PANTOPRAZOLE SOD 40 MG DELAYED RELEASE TAB PO SCH (10:00)
[2017-01-03] MEDS: LISINOPRIL 20 MG TAB PO SCH ×2 (10:00→21:36)
[2017-01-03] MEDS: AMOXICILLIN/CLAVULANATE K 875 MG TAB PO SCH ×2 (10:00→21:43)
[2017-01-03] MEDS: FLUTICASONE PROPIONATE 50 MCG/ACT 16 GM NASAL SPRAY EACH NARE SCH (10:00)
[2017-01-03] MEDS: buPROPion HCL 100 MG SUSTAINED RELEASE TAB PO PRN (10:00)
--- NOTE | 2017-01-03 12:41 | HHI.PR ---
Subjective Remarks pt states pain improved with po meds. denies fever, chill, abscesses still present, still draining. packing came out overnight. Objective Vital Signs Date Time Temp Pulse Resp B/P Pulse Ox O2 Delivery O2 Flow Rate FiO2 01/03/17 07:42 97.6 77 17 125/82 99 01/03/17 04:00 98.0 78 18 110/65 98 01/03/17 03:48 16 01/03/17 00:00 97.1 81 18 154/94 100 01/02/17 20:00 97.6 81 18 142/86 98 01/02/17 14:13 96.6 85 18 154/95 100 I/O 01/02/17 01/02/17 01/02/17 01/03/17 01/03/17 01/03/17 07:00 15:00 23:00 07:00 15:00 23:00 Intake Total 840 ml 480 ml Balance 840 ml 480 ml Intake Oral 840 ml 480 ml # Voids 4 3 2 Result Diagram: 01/02/1792501/02/17925 Objective Remarks GENERAL: Well-nourished, well-developed patient. CARDIOVASCULAR: Regular rate and rhythm without murmurs, gallops, or rubs. RESPIRATORY: Breath sounds equal bilaterally. No accessory muscle use. ABDOMEN/GI: Abdomen soft, non-tender. Groin: still draining GENITOURINARY: left vulva still decreased swelling and induration, s/p I & D EXTREMITIES: No cyanosis or edema, non-tender, without signs of DVT. Assessment and Plan Assessment and Plan left vulvar abscess/hidradenitis/s/p I&D cont po ABX encouraged wen-bottle use, shower and gauze to incisions s/p I & D, will leave open to air wound culture, neg stable for d/c from [facility] f/u 1-2 wk in office call with concerns Yulia Strong MD Jan 03, 2017 12:41
[2017-01-03 13:00] VITALS: BP 121/78; PULSE 84; RESP 16; TEMP 98.6; O2SAT 99
[2017-01-03 15:58] VITALS: BP 143/82; PULSE 75; RESP 18; TEMP 97.8; O2SAT 99
--- NOTE | 2017-01-03 19:21 | HHI.PR ---
Subjective Remarks I discussed her status with the Foot Specialist earlier today. She denies any adverse changes with respect to the procedure that was done. Antibiotics are continued and appear to be tolerated well. It is considered that she may be for discharge planning to have home health follow up. Case management will be notified. Objective Vital Signs Date Time Temp Pulse Resp B/P Pulse Ox O2 Delivery O2 Flow Rate FiO2 01/03/17 15:58 97.8 75 18 143/82 99 01/03/17 13:00 98.6 84 16 121/78 99 01/03/17 07:42 97.6 77 17 125/82 99 01/03/17 04:00 98.0 78 18 110/65 98 01/03/17 03:48 16 01/03/17 00:00 97.1 81 18 154/94 100 01/02/17 20:00 97.6 81 18 142/86 98 I/O 01/02/17 01/02/17 01/02/17 01/03/17 01/03/17 01/03/17 07:00 15:00 23:00 07:00 15:00 23:00 Intake Total 840 ml 480 ml 500 ml Balance 840 ml 480 ml 500 ml Intake Oral 840 ml 480 ml 500 ml # Voids 4 3 2 2 Result Diagram: 01/02/1792501/02/17925 Objective Remarks GENERAL: Alert and in mild distress for discomfort of the skin lesions. SKIN: Warm and dry, except for the areas of ulcerated skin lesions. HEAD: Normocephalic. Atraumatic. EYES: No scleral icterus. No injection or drainage. NOSE: The nasal passages show congestive changes bilaterally. NECK: Supple, trachea midline. No JVD or lymphadenopathy. CARDIOVASCULAR: Regular rate and rhythm without murmurs, gallops, or rubs. RESPIRATORY: Breath sounds equal bilaterally. No accessory muscle use. GASTROINTESTINAL: Abdomen soft, non-tender, nondistended. MUSCULOSKELETAL: No cyanosis, or edema. Free range of motion for the limbs. Pulses are at 3+/4+. BACK: Nontender without obvious deformity. No CVA tenderness. NEUROLOGICAL: No lateralizing or focal motor deficits to exam. Assessment and Plan Assessment and Plan ASSESSMENT 1. Suppurative Hydradenitis. 2. Severe Cellulitis. 3. Hypokalemia. 4. Hypertension. 5. Diabetes Mellitus, Type 2. 6. Hyperlipidemia. 7. Chronic Anemia secondary to chronic illness. 8. Major Depression. 9. Post Traumatic Stress Disorder. 10. Allergic Rhinitis. PLAN 1. Continue with conversion to oral antibiotics. 2. Infectious Disease recommendations are appreciated.. 3. Gynecology to follow up short term as an outpatient. 4. Case management consult for discharge planning. 5. DVT and PE prophylaxis. Timothy Gallo MD Jan 03, 2017 19:21
[2017-01-03 20:00] VITALS: BP 131/81; PULSE 82; RESP 18; TEMP 99; O2SAT 99
[2017-01-03] MEDS: ENOXAPARIN SODIUM 40 MG/0.4 ML SYRINGE SQ SCH (21:36)
[2017-01-04] VITALS: BP 146/96; PULSE 69; RESP 18; TEMP 98.7; O2SAT 97
[2017-01-04] MEDS: diphenhydrAMINE HCL 50 MG CAP PO PRN (03:23)
[2017-01-04 04:00] VITALS: BP 147/83; PULSE 83; RESP 18; TEMP 96.9; O2SAT 98
[2017-01-04] MEDS ORDERED: OXYC1TAB36 PO (06:28)
[2017-01-04] MEDS ORDERED: DIPH50CA PO (06:28)
[2017-01-04] MEDS ORDERED: AMOX875T2 PO (06:28)
--- NOTE | 2017-01-04 06:32 | HHI.PR ---
Subjective Remarks She is just awakening from sleep. She states that she is ready to go home. She is cleared for discharge and outpatient follow up by Gynecology also. Objective Vital Signs Date Time Temp Pulse Resp B/P Pulse Ox O2 Delivery O2 Flow Rate FiO2 01/04/17 04:00 96.9 83 18 147/83 98 01/04/17 00:00 98.7 69 18 146/96 97 01/03/17 20:00 99.0 82 18 131/81 99 01/03/17 15:58 97.8 75 18 143/82 99 01/03/17 13:00 98.6 84 16 121/78 99 01/03/17 07:42 97.6 77 17 125/82 99 I/O 01/03/17 01/03/17 01/03/17 01/04/17 01/04/17 01/04/17 07:00 15:00 23:00 07:00 15:00 23:00 Intake Total 500 ml Balance 500 ml Intake Oral 500 ml # Voids 2 2 1 Result Diagram: 01/02/1792501/02/17925 Objective Remarks GENERAL: Alert and in mild distress for discomfort of the skin lesions. SKIN: Warm and dry with multiple areas of ulcerated skin lesions improving. HEAD: Normocephalic. Atraumatic. EYES: No scleral icterus. No injection or drainage. NOSE: The nasal passages show congestive changes bilaterally. NECK: Supple, trachea midline. No JVD or lymphadenopathy. CARDIOVASCULAR: Regular rate and rhythm without murmurs, gallops, or rubs. RESPIRATORY: Breath sounds equal bilaterally. No accessory muscle use. GASTROINTESTINAL: Abdomen soft, non-tender, nondistended. MUSCULOSKELETAL: No cyanosis, or edema. Free range of motion for the limbs. Pulses are at 3+/4+. BACK: Nontender without obvious deformity. No CVA tenderness. NEUROLOGICAL: No lateralizing or focal motor deficits to exam. Assessment and Plan Assessment and Plan ASSESSMENT 1. Suppurative Hydradenitis. 2. Severe Cellulitis. 3. Hypokalemia. 4. Hypertension. 5. Diabetes Mellitus, Type 2. 6. Hyperlipidemia. 7. Chronic Anemia secondary to chronic illness. 8. Major Depression. 9. Post Traumatic Stress Disorder. 10. Allergic Rhinitis. PLAN 1. Continue with current oral antibiotics. 2. Gynecology to have close outpatient follow up. 3. Home Today with close outpatient follow up. Timothy Gallo MD Jan 04, 2017 06:32 Timothy Gallo MD Jan 04, 2017 06:32
[2017-01-04 08:00] VITALS: BP 121/70; PULSE 80; RESP 18; TEMP 98.5; O2SAT 98
[2017-01-04] MEDS: AMOXICILLIN/CLAVULANATE K 875 MG TAB PO SCH (09:00)
[2017-01-04] MEDS: SODIUM CHLORIDE 0.9% FLUSH 5 ML FLUSH FLUSH SCH (09:28)
[2017-01-04] MEDS: PANTOPRAZOLE SOD 40 MG DELAYED RELEASE TAB PO SCH (09:28)
[2017-01-04] MEDS: FERROUS SULFATE 325 MG (65 MG ELEMENTAL IRON) TAB PO SCH (09:28)
[2017-01-04] MEDS: DOXAZOSIN MESYLATE 4 MG TAB PO SCH (09:28)
[2017-01-04] MEDS: LISINOPRIL 20 MG TAB PO SCH (09:28)
[2017-01-04] MEDS: FLUoxetine HCL 20 MG CAP PO SCH (09:28)
[2017-01-04] MEDS: FLUTICASONE PROPIONATE 50 MCG/ACT 16 GM NASAL SPRAY EACH NARE SCH (09:28)
[2017-01-04] MEDS: metFORMIN HCL 500 MG TAB PO SCH (09:28)
[2017-01-04 12:00] VITALS: BP 123/80; PULSE 91; RESP 18; TEMP 98.3; O2SAT 99
--- NOTE | 2017-01-04 16:51 | MB ---
cc: ANNALEE HOPSON M.D.,ZOE ARRIETA,BENNIE Buchanan MD DATE OF CONSULTATION 01/03/17 REASON FOR CONSULTATION hydradenitis suppurativa, small abscess on back of head. BRIEF HISTORY This is an unfortunate 41-year-old, -[place] young lady who was admitted due to severe cellulitis associated with some hidradenitis suppurativa. The patient has a history of not taking Humira which she has been prescribed for two weeks. She notes some raised areas on the skin between her breasts and in the groin and they developed drainage and pain. She was admitted for severe cellulitis for antibiotic therapy. Apparently, over that period of time she improved. She says she has been dealing with hydradenitis and significant purulent drainage from the groin for two years. She has an abscess on the back of her head on the scalp just above the hairline that spontaneously started draining within the last 24 hours and feels better. She has a little cyst in the upper midline back that is nontender. ALLERGIES DILAUDID IODINE ONDANSETRON TETRACYCLINE PAST MEDICAL HISTORY 1. Type 2 diabetes 2. PTSD, 3. Hypertension, 4. Hyperlipidemia, 5. Anxiety, depression, 6. Migraine 7. Gastroesophageal reflux disease 8. Anemia. 9. Previous foot surgery REVIEW OF SYSTEMS Significant for the drainage from the areas in the groin on both the right and left side and the inframammary crease on the left side and from a cyst on the back of her head just above the hairline. PHYSICAL EXAMINATION GENERAL: She is a mildly overweight -[place] woman who is in no acute distress. She is pleasant and cooperative throughout the exam. VITAL SIGNS: Temperature was 97.8, pulse 75, respiratory rate 18, blood pressure 143/82, O2 sats 99% on room air. Evaluation of multiple areas demonstrates various stages of classic chronic hydradenitis in the left inframammary crease, in the right groin and the left groin. She has a small decompressed cystic structure with mild tenderness just above the hairline on the posterior inferior left scalp. In the upper midline back, she has about a 2 cm raised area consistent with an epidermal inclusion cyst which is non-inflamed and nontender. LABORATORY DATA Her white count on the 15 was 6.8 with normal differential. Hemoglobin was 10.6, platelet count is 261. Her creatinine was 1.04. Her blood glucose was 106. She had normal coagulation studies. She was negative for a nasal screen MRSA. ASSESSMENT An unfortunate 41-year-old -[place] woman with chronic hydradenitis suppurativa right now affecting the inframammary crease in the left breast, the right groin and the left groin. There is no erythema, but there is a small amount of purulent drainage. In the posterior inferior left scalp, there is a draining cystic structure with, according to the patient, subjectively improving discomfort. She has a noninflamed cystic palpable mass in the upper mid back. This is most consistent with an epidermal inclusion cyst. PLAN I discussed with the patient that surgical treatment for active inflammatory changes of an hydradenitis can include acute incision and drainage which she does not require at this time. Long-term treatment can include wide areas of excision with healing either via secondary intention or skin grafting or flap coverage. In my experience, this is best performed by a plastic surgeon as I do not do flaps or skin grafts. Primary closure of areas of hydradenitis is associated with an unusually high rate of wound infection and recurrent then larger wound complications. The cyst on the back of the scalpel appears to have decompressed on its own. No acute surgical intervention is required for that. I did discuss with her following up in my office to remove the epidermal inclusion cyst which could be done under local anesthetic likely in the office. I did discuss with her the difficulties associated with patient's who have chronic hydradenitis suppurativa and definitive treatment. I would encourage her to visit with a plastic surgeon who has experience in excision and treatment of this chronically inflamed and affected areas. She understood. MD RONNY Singleton/ /4:15 PM /4:35 PM
== END 2017-01-04 13:56 | disposition home or self-care (01) | DRG 580 ==
LOC: NEPE 14:07 → NEDA 19:20 → OBSVTOIN 19:50 → HOCA 22:34
PROVIDERS: ADMIT Internal Medicine; ATTEND Internal Medicine
PROC: 0U9MXZX Drainage of Vulva, External Approach, Diagnostic (ICD-10-PCS; principal; 2017-01-01)
DX: L73.2 Hidradenitis suppurativa (principal); N76.4 Abscess of vulva; I10 Essential (primary) hypertension; E11.9 Type 2 diabetes mellitus without complications; F32.9 Major depressive disorder, single episode, unspecified; L03.314 Cellulitis of groin; L03.313 Cellulitis of chest wall; L02.811 Cutaneous abscess of head [any part, except face]; Z91.14 Patient's other noncompliance with medication regimen; Z79.84 Long term (current) use of oral hypoglycemic drugs; F41.8 Other specified anxiety disorders; F43.10 Post-traumatic stress disorder, unspecified; K21.9 Gastro-esophageal reflux disease without esophagitis; G47.30 Sleep apnea, unspecified; J40 Bronchitis, not specified as acute or chronic; E78.5 Hyperlipidemia, unspecified; E87.6 Hypokalemia; D63.8 Anemia in other chronic diseases classified elsewhere; E66.3 Overweight; Z68.30 Body mass index [BMI] 30.0-30.9, adult; L72.0 Epidermal cyst; J30.9 Allergic rhinitis, unspecified
CPT/HCPCS: 74176; 80048; 80053; 81001; 82272; 82728; 82948; 83540; 83550; 83605; 83735; 84702; 85025; 85610; 85730; 86403; 87040; 87070; 87102; 87185; 87205; 87206; 87640; 87641; 96365; 96375; 96376; J1100; J1650; J2270; J2543; J3370; J7050; Q0163

== ENCOUNTER 2017-03-30 18:36 | Emergency (ER) | payer SELFPAY ==
[~2017-03-30] VITALS: Ht 167.6 cm; Wt 75.0 kg
[~2017-03-30 18:36] MED LIST changes: +AMOX875T2 PO; -ARIP1TAB13 PO; -AUGM875T PO; -BUPR150CR PO; +DIPH50CA PO; +FLUO60TA PO; -IBUP-232 PO; +OXYC1TAB36 PO; -PLAQ200T PO
[2017-03-30 18:37] VITALS: BP 165/103; PULSE 103; RESP 17; TEMP 96.9; O2SAT 100
--- NOTE | 2017-03-30 19:22 | PD ---
HPI Chief Complaint: Musculoskeletal Complaint Time Seen by Provider: 19:06 Travel History International Travel<30 days: No Contact w/Intl Traveler<30days: No Traveled to known affect area: No History of Present Illness HPI This is a 41 year old female with a history of an inflammatory syndrome in the lupus family who presents to the emergency department with neck pain and stiffness radiating down her shoulders and in her wrists and knees, severe, constant, not improved despite hydrocodone or percocet. Pt. has been on humira but it is not helping. she has had these symptoms on and off for one year but it has never been this bad before. PFSH Past Medical History Hx Anticoagulant Therapy: Yes (ASA) Arthritis: No Asthma: No Autoimmune Disease: Yes (ANTICARDOLIPID ) Anxiety: Yes Depression: Yes Heart Rhythm Problems: No Cancer: No Cardiac Catheterization: No Cardiovascular Problems: Yes (HTN) High Cholesterol: No Chemotherapy: No Chest Pain: Yes Congestive Heart Failure: No COPD: No Cerebrovascular Accident: No Diabetes: Yes (METFORMIN) Diminished Hearing: No Endocrine: Yes Gastrointestinal Disorders: Yes (ACID REFLUX) GERD: Yes Glaucoma: No Genitourinary: No Headaches: No Hepatitis: No Hiatal Hernia: No Hypertension: Yes Immune Disorder: Yes Kidney Stones: No Musculoskeletal: Yes (BACK AND NECK PAIN) Neurologic: Yes Psychiatric: Yes (ANXIETY & DEPRESSION) Reproductive: No Respiratory: Yes (BRONCHITIS,SLEEP APNEA) Migraines: Yes Myocardial Infarction: No Radiation Therapy: No Renal Failure: No Seizures: Yes Sickle Cell Disease: No Sleep Apnea: Yes (DOES NOT WEAR CPAP) Thyroid Disease: No Ulcer: No Menopausal: Yes : 0 Para: 0 Miscarriage: 0 : 0 Ovarian Cysts: Yes Past Surgical History Abdominal Surgery: No AICD: No Body Medical Devices: NONE Cardiac Surgery: No Coronary Artery Bypass Graft: No Ear Surgery: No Endocrine Surgery: No Eye Surgery: No Genitourinary Surgery: No Gynecologic Surgery: Yes (CYSTS IN "PELVIS"" PER PATIENT) Joint Replacement: No Oral Surgery: Yes Pacemaker: No Other Surgery: Yes Family History Family Hypercholesterolemia: Yes Social History Alcohol Use: No Tobacco Use: No Substance Use: No (PT DENIES) Allergies-Medications (Allergen,Severity, Reaction): Coded Allergies: Hydromorphone (Verified Allergy, Severe, Itching, 12/28/16) Iodine (Verified Allergy, Severe, Hives, 12/28/16) NOT ALLERGIC TO BETADINE Ondansetron (Verified Allergy, Severe, Itching, 12/28/16) Tetracycline (Verified Allergy, Severe, Hives, 12/28/16) Reported Meds & Prescriptions Reported Meds & Active Scripts Active Oxycodone-Acetaminophen 10-325 mg Tab 1 Tab PO Q4H PRN Flonase Allergy Relief Children Nasal Mar Lin (Fluticasone Nasal Mar Lin) 50 Mcg/ Act Mar Lin 2 Mar Lin EACH NARE DAILY 10 Days 50 mcg/spray Reported Fluoxetine (Fluoxetine HCl) 60 Mg Tab 60 Mg PO DAILY Lorazepam 0.5 Mg Tab 0.5 Mg PO DAILY PRN Vyvanse (Lisdexamfetamine Dimesylate) 50 Mg Cap 50 Mg PO DAILY Wellbutrin SR 12 HR (Bupropion HCl) 200 Mg Tab 200 Mg PO Q12HR PRN Doxazosin (Doxazosin Mesylate) 4 Mg Tab 8 Mg PO BID Lisinopril 20 Mg Tab 20 Mg PO BID Metformin (Metformin HCl) 500 Mg Tab 500 Mg PO DAILY With a meal Humira 2-Pack Inj (Adalimumab 2-Pack Inj) 40 Mg/0.8 Ml Syr 40 Mg SQ Q7D Review of Systems Except as stated in HPI: all other systems reviewed are Neg Physical Exam Narrative GENERAL:Uncomfortable appearing SKIN: Focused skin assessment warm and dry. HEAD: Atraumatic. Normocephalic. EYES: Pupils equal and round. No injection or drainage. ENT: Moist mucous membranes NECK: Holds neck tilted upward, no focal tenderness CARDIOVASCULAR: Regular rate and rhythm. No murmur appreciated. RESPIRATORY: Clear to auscultation. Breath sounds equal bilaterally. GASTROINTESTINAL: Abdomen soft, non-tender, nondistended. MUSCULOSKELETAL: No obvious deformities. No joint effusions NEUROLOGICAL: Awake and alert. No obvious cranial nerve deficits. Moving all extremities PSYCHIATRIC: anxious Data Data Last Documented VS Vital Signs Date Time Temp Pulse Resp B/P Pulse Ox O2 Delivery O2 Flow Rate FiO2 03/30/17 18:37 96.9 103 17 165/103 100 Orders Complete Blood Count With Diff (03/30/17 19:31) Comprehensive Metabolic Panel (03/30/17 19:31) ^ Insert Iv (03/30/17 19:31) Lorazepam Inj (Ativan Inj) (03/30/17 19:45) Ketorolac Inj (Toradol Inj) (03/30/17 19:45) Methylprednisolone So Succ Inj (Solumedr (03/30/17 20:00) Labs Laboratory Tests Test 03/30/17 19:15 White Blood Count 6.6 TH/MM3 Red Blood Count 4.11 MIL/MM3 Hemoglobin 10.1 GM/DL Hematocrit 30.7 % Mean Corpuscular Volume 74.8 FL Mean Corpuscular Hemoglobin 24.6 PG Mean Corpuscular Hemoglobin 32.9 % Concent Red Cell Distribution Width 16.3 % Platelet Count 312 TH/MM3 Mean Platelet Volume 8.1 FL Neutrophils (%) (Auto) 58.6 % Lymphocytes (%) (Auto) 32.3 % Monocytes (%) (Auto) 4.8 % Eosinophils (%) (Auto) 3.6 % Basophils (%) (Auto) 0.7 % Neutrophils # (Auto) 3.9 TH/MM3 Lymphocytes # (Auto) 2.1 TH/MM3 Monocytes # (Auto) 0.3 TH/MM3 Eosinophils # (Auto) 0.2 TH/MM3 Basophils # (Auto) 0.0 TH/MM3 CBC Comment AUTO DIFF Differential Comment AUTO DIFF CONFIRMED Platelet Estimate NORMAL Platelet Morphology Comment NORMAL Sodium Level 139 MEQ/L Potassium Level 3.6 MEQ/L Chloride Level 103 MEQ/L Carbon Dioxide Level 27.1 MEQ/L Anion Gap 9 MEQ/L Blood Urea Nitrogen 9 MG/DL Creatinine 0.75 MG/DL Estimat Glomerular Filtration 103 ML/MIN Rate Random Glucose 103 MG/DL Calcium Level 8.7 MG/DL Total Bilirubin 0.2 MG/DL Aspartate Amino Transf 10 U/L (AST/SGOT) Alanine Aminotransferase 16 U/L (ALT/SGPT) Alkaline Phosphatase 71 U/L Total Protein 7.9 GM/DL Albumin 3.2 GM/DL [facility] Medical Decision Making Medical Screen Exam Complete: Yes Emergency Medical Condition: Yes Interpretation(s) No leukocytosis Anemia Differential Diagnosis Immunologic disorder flare, panic attack, anxiety, drug-seeking behavior Narrative Course This is a 41-year-old female who presents to the emergency department with severe pain in her neck and her joints. On exam she has carpopedal spasm, is hyperventilating and has her next step to the side. I suspect this is due to hyperventilation. She was given a milligram of Ativan as well as IV steroids in the setting of her history of rheumatologic disease and on reassessment she feels much better. Labs are obtained which are reassuring. Patient will be discharged on Valium and steroids and can follow-up with her delivery technician. Diagnosis Primary Impression: Hyperventilation Patient Instructions: General Instructions Additional Instructions: If you develop severe chest pain, shortness of breath, sweating, lightheadedness , dizziness or difficulty breathing return to the emergency department immediately. Followup with your primary care physician in 2-3 days if your symptoms are not resolved. Med/Other Pt SpecificInfo: Prescription(s) given Scripts Prednisone (21) 10 mg tab Dose Pack 10 Mg Pack10 Mg PO DIRECTED #1 DSPK Ref 0 Prov:Debra Osborn MD 03/30/17 Diazepam (Valium)5 Mg Tab5 Mg PO TID PRN (SPASM) #15 TAB Ref 0 Prov:Debra Osborn MD 03/30/17 Disposition: 01 DISCHARGE HOME Condition: Stable Debra Osborn MD March 30, 2017 19:21
[2017-03-30] MEDS ORDERED: LORazepam 2 MG/ML VIAL IV PUSH ONE (19:45)
[2017-03-30] MEDS ORDERED: KETOROLAC TROMETHAMINE 30 MG/ML (IVP) VIAL IV PUSH ONE (19:45)
[2017-03-30 19:49] LABS: AUTOMATED NEUTROPHIL # 3.9 TH/MM3 (1.8-7.7); BASOPHIL % 0.7 % (0.0-2.0); EOSINOPHIL # 0.2 TH/MM3 (0-0.4); EOSINOPHIL % 3.6 % (0.0-4.0); HEMATOCRIT 30.7 % (35.0-46.0); HEMO FLAGS AUTO DIFF; LYMPH % 32.3 % (9.0-44.0); LYMPHOCYTE # 2.1 TH/MM3 (1.0-4.8); MEAN CELL VOLUME 74.8 FL (80.0-100.0); MEAN CORPUSCULAR HEMOGLOBIN 24.6 PG (27.0-34.0); MEAN CORPUSCULAR HGB CONC 32.9 % (32.0-36.0); MONO % 4.8 % (0.0-8.0); NEUT % 58.6 % (16.0-70.0); PLATELET COUNT 312 TH/MM3 (150-450); RED BLOOD COUNT 4.11 MIL/MM3 (4.00-5.30); RED CELL DISTRIBUTION WIDTH 16.3 % (11.6-17.2); WHITE BLOOD COUNT 6.6 TH/MM3 (4.0-11.0)
[2017-03-30] MEDS ORDERED: methylPREDNISolone SOD SUCC 125 MG/2 ML VIAL IV PUSH ONE (20:00)
[2017-03-30 20:12] LABS: AST (GOT) 10 U/L (15-37); BICARBONATE 27.1 MEQ/L (21.0-32.0); BLOOD UREA NITROGEN 9 MG/DL (7-18); CHLORIDE 103 MEQ/L (98-107); GLOMERULAR FILTRATION RATE 103 ML/MIN (>89); POTASSIUM 3.6 MEQ/L (3.5-5.1); SODIUM (NA) 139 MEQ/L (136-145)
[2017-03-30 20:13] LABS: ANION GAP 9 MEQ/L (5-15)
[2017-03-30 20:16] LABS: ALKALINE PHOSPHATASE 71 U/L (45-117); ALT (GPT) 16 U/L (10-53); TOTAL BILIRUBIN ADULT 0.2 MG/DL (0.2-1.0)
[2017-03-30 20:20] LABS: PLATELET ESTIMATE SMEAR NORMAL (NORMAL); PLATELET MORPHOLOGY NORMAL (NORMAL); SCAN/DIFF AUTO DIFF CONFIRMED
[2017-03-30] MEDS ORDERED: DIAZ5 PO (20:31)
[2017-03-30] MEDS ORDERED: PRED10PA PO (20:31)
== END 2017-03-30 20:56 | disposition home or self-care (01) ==
LOC: NEPD 18:36
DX: R06.4 Hyperventilation (principal); R29.0 Tetany; I10 Essential (primary) hypertension; E11.9 Type 2 diabetes mellitus without complications; Z79.01 Long term (current) use of anticoagulants
CPT/HCPCS: 80053; 85025; 96374; 96375; 99283; J1885; J2060; J2930